=== PATIENT | male | born 1935 | race Caucasian/White ===

== ENCOUNTER 2019-04-26 10:17 | Emergency (ER) | payer MEDICARE, SELFPAY ==
[2019-04-26 10:23] VITALS: BP 153/69; PULSE 53; RESP 15; TEMP 36.7; O2SAT 97
--- NOTE | 2019-04-26 11:18 | W.ED.GENAD ---
Discharge Plan Disposition Patient Disposition: HOME Condition: Stable Discharge Details Chief Complaint: Cellulitis Clinical Impression: Abrasion of leg, right, infected Primary Care Provider: Ghassan Pearson ED Provider: Galo Cheney Home Meds and New Rx's Prescriptions: New cephalexin 500 mg tablet 500 mg PO QID 7 Days Qty: 28 RF: 0 Continued donepezil 10 MG tablet 10 mg PO HS RF: 0 tamsulosin 0.4 MG capsule 0.4 mg PO DAILY RF: 0 amlodipine 10 MG tablet 10 mg PO DAILY RF: 0 benazepril 40 MG tablet 40 mg PO BID RF: 0 finasteride 5 MG tablet 5 mg PO HS RF: 0 memantine [Namenda] 5 MG tablet 10 mg PO BID RF: 0 sertraline 25 MG tablet 25 mg PO DAILY RF: 0 Discharge Instructions Instructions: Cellulitis (ED) Additional Instructions: Continue to keep wound clean and dry and take antibiotics as prescribed and until fully completed. Return immediately to the emergency department for any new or significant worsening of symptoms or if not improving in the next 24 to 48 hours. Feel free to follow-up with primary care provider for reassessment as needed. Referrals: Ghassan Pearson [Primary Care Provider] - (As needed for reassessment or if not improving) Discharge Data Discharge Date/Time-TO BE ENTERED AT DEPARTURE: 04/26/19 11:37 Medical Decision Making Patient presenting to the emergency department with chief complaint of leg infection. Patient states approximately 1 week ago he had a slight abrasion to his right lower leg which seemed to be healing fine over the past 24 to 48 hours as noted significant swelling, erythema, and increase of discomfort to this area. Patient denies any fever chills, calf pain, or other symptoms. Physical exam shows a superficial abrasion to the right anterior dumont with surrounding erythema and swelling to the right lower extremity that is slightly worse than the left but both lower extremity's have edema. Patient does state ongoing edema to the lower extreme is but has noticed worsening symptoms given recent injury with surrounding erythema suspicious for cellulitis patient placed on Keflex. Return precautions were discussed. After discussion of diagnosis and plan of care patient has no further needs, questions, or concerns and states clear understanding to return to the emergency department for any worsening symptoms. HPI General Mode of arrival: ambulatory. Date/Time Provider Initiated Documentation: 04/26/19 10:27. Limitations to Documentation: no limitations. Information obtained by: patient and RN notes reviewed. History of Present Illness 84 year old M presents to the emergency department with the chief complaint of Right lower leg infection, described as mild, with intensity rated at 4. Quality is described as aching, and is localized to the right and lower extremity. Patient started experiencing this day(s) (6, with worsening over the past 24 hours) and it has been constant. Patient notes no other symptoms.. Patient did receive the following treatments prior to arrival, none Related Data Home Medications Medication Instructions Recorded Confirmed amlodipine 10 mg PO DAILY 06/18/16 04/26/19 benazepril 40 mg PO BID 06/18/16 04/26/19 donepezil 10 mg PO HS 06/18/16 04/26/19 finasteride 5 mg PO HS 06/18/16 04/26/19 memantine [Namenda] 10 mg PO BID 06/18/16 04/26/19 tamsulosin 0.4 mg PO DAILY 06/18/16 04/26/19 sertraline 25 mg PO DAILY 02/15/17 04/26/19 cephalexin 500 mg PO QID 7 Days #28 tab 04/26/19 Previous Rx's Medication Instructions Recorded cephalexin 500 mg PO QID 7 Days #28 tab 04/26/19 Allergies Allergy/AdvReac Type Severity Reaction Status Date / Time No Known Allergies Allergy Unverified 04/26/19 10:35 General Stated Complaint: Cellulitis DAYSI: 4 Review of Systems Constitutional Denies chills and Denies fever(s) Cardiovascular Denies chest pain, Reports leg edema and Denies dyspnea Respiratory Denies dyspnea Integumentary/Breasts Reports as per HPI, Reports erythema and Reports sores [facility] Social History Smoking/Tobacco Use Status: Former Tobacco Use Drug use: Never Do you feel safe at home: Yes Do you feel safe in your relationship?: Yes Exam Const General: cooperative, healthy appearing, comfortable, no acute distress and not ill appearing Nutritional Appearance: average body habitus Orientation: alert and awake Cardio Rate: regular rate Rhythm: regular rhythm Skin General skin exam: erythema (With abrasion to right anterior dumont) Extrem General: pedal edema bilaterally (1+ left, 2+ right) Course Vital Signs Temperature 36.7 C 04/26/19 10:23 Pulse 53 L 04/26/19 10:23 Respiratory Rate 15 04/26/19 10:23 Blood Pressure 153/69 H 04/26/19 10:23 Pulse Oximetry 97 04/26/19 10:23 Temperature 36.7 C 04/26/19 10:23 Temperature Source Temporal Artery Scan 04/26/19 10:23 Pulse 53 L 04/26/19 10:23 Respiratory Rate 15 04/26/19 10:23 Respiratory Effort Non-Labored 04/26/19 10:34 Blood Pressure 153/69 H 04/26/19 10:23 Blood Pressure Position Sitting 04/26/19 10:23 Pulse Oximetry 97 04/26/19 10:23 Oxygen Delivery Method Room Air 04/26/19 10:23 Oxygen Flow Rate 0 04/26/19 10:23 Pain Level 4 04/26/19 10:23
[2019-04-26] MEDS: Cephalexin 500 MG CAP PO (11:33)
[2019-04-26 11:35] VITALS: BP 153/69; PULSE 53; RESP 15; TEMP 36.7; O2SAT 97
== END 2019-04-26 11:37 | disposition home or self-care (01) ==
LOC: ER 11:32
PROVIDERS: Emergency Provider Nurse Practitioner Family; PCP Internal Medicine
DX: L03.115 Cellulitis of right lower limb (principal)
CPT/HCPCS: 99283

== ENCOUNTER 2019-05-02 11:51 | Emergency (ER) | payer MEDICARE, SELFPAY ==
[2019-05-02 11:56] VITALS: BP 129/71; PULSE 52; RESP 16; TEMP 36.6; O2SAT 97
--- NOTE | 2019-05-02 12:13 | ED.GENADUL_ITS ---
Discharge Plan Disposition Patient Disposition: HOME Condition: Stable Discharge Details Chief Complaint: GenMedical Clinical Impression: Cellulitis Primary Care Provider: Ghassan Pearson ED Provider: Galo Cheney Home Meds and New Rx's Prescriptions: New doxycycline hyclate 100 mg tablet 100 mg PO BID Qty: 14 RF: 0 Continued donepezil 10 MG tablet 10 mg PO HS RF: 0 tamsulosin 0.4 MG capsule 0.4 mg PO DAILY RF: 0 amlodipine 10 MG tablet 10 mg PO DAILY RF: 0 benazepril 40 MG tablet 40 mg PO BID RF: 0 finasteride 5 MG tablet 5 mg PO HS RF: 0 memantine [Namenda] 5 MG tablet 10 mg PO BID RF: 0 sertraline 25 MG tablet 25 mg PO DAILY RF: 0 Discontinued cephalexin 500 mg tablet 500 mg PO QID 7 Days Qty: 28 RF: 0 Discharge Instructions Instructions: Cellulitis (ED) Additional Instructions: You may stop your Keflex and start doxycycline right away. Take for the full course of medications. Please be very cautious if out in the sun as this medication may cause photosensitivity and sunburns. Return immediately to the emergency department for any new or significant worsening of symptoms or if not improved. Referrals: Ghassan Pearson [Primary Care Provider] - (As needed for reassessment or if not improving) Discharge Data Discharge Date/Time-TO BE ENTERED AT DEPARTURE: 05/02/19 14:08 Medical Decision Making Patient presenting to the emergency department for chief complaint of continued left leg infection. Patient was seen by myself 6 days ago and was placed upon Keflex for a superficial mild cellulitis to the left anterior dumont after a abrasion. Patient states that wound is just not improving and he has 1 day left of medications. Physical exam does show unilateral edema, erythema, but wound/abrasion does appear to be closing up and healing better but erythema does seem to be more distal to wound. Given unilateral leg swelling and continued symptoms do plan to rule out DVT or superficial thrombophlebitis causing this. DVT study was reviewed and discussed with lead maintenance technician and no acute findings are noted except for obvious edema. Given that patient has been on Keflex and is not improved plan to place patient on doxycycline. Did discuss with patient precautions and sun exposure while on medication. Return precautions discussed. After discussion of diagnosis and plan of care patient has no further needs, questions, or concerns and states clear understanding to return to the emergency department for any worsening symptoms. HPI General Mode of arrival: ambulatory . Date/Time Provider Initiated Documentation: 05/02/19 12:02 . Limitations to Documentation: no limitations . Information obtained by: patient, family and RN notes reviewed . History of Present Illness 84 year old M presents to the emergency department with the chief complaint of right lower extremity wound discomfort, described as mild, with intensity rated at 4. Quality is described as aching, and is localized to the right and lower extremity. Related Data Home Medications Medication Instructions Recorded Confirmed amlodipine 10 mg PO DAILY 06/18/16 05/02/19 benazepril 40 mg PO BID 06/18/16 05/02/19 donepezil 10 mg PO HS 06/18/16 05/02/19 finasteride 5 mg PO HS 06/18/16 04/26/19 memantine [Namenda] 10 mg PO BID 06/18/16 04/26/19 tamsulosin 0.4 mg PO DAILY 06/18/16 05/02/19 sertraline 25 mg PO DAILY 02/15/17 05/02/19 doxycycline hyclate 100 mg PO BID #14 tab 05/02/19 Previous Rx's Medication Instructions Recorded doxycycline hyclate 100 mg PO BID #14 tab 05/02/19 Allergies Allergy/AdvReac Type Severity Reaction Status Date / Time No Known Allergies Allergy Unverified 04/26/19 10:35 General Stated Complaint: GenMedical DAYSI: 4 Review of Systems Constitutional Denies body ache(s), Denies chills and Denies fever(s) Cardiovascular Denies chest pain, Reports edema (left lower leg) and Denies dyspnea Respiratory Denies cough and Denies dyspnea Integumentary/Breasts Reports as per HPI and Reports wounds PFSH Social History Smoking/Tobacco Use Status: Former Tobacco Use Drug use: Never Do you feel safe at home: Yes Do you feel safe in your relationship?: Yes Exam Const General: cooperative, healthy appearing, comfortable and no acute distress Orientation: alert, awake and oriented x3 Resp Effort & Inspection: normal respiratory effort and able to speak in complete sentences Auscultation: clear to auscultation bilaterally Cardio Rate: regular rate Rhythm: regular rhythm Heart Sounds: S1 normal and S2 normal Pulses: normal peripheral pulses Neuro General: alert, awake, oriented x3, moves all extremities and no focal motor deficits Extrem Right lower extremity: lower leg Details: erythema Location: of the mid lower leg Location: anteriorly, tenderness Location: of the midshaft tibia, pitting edema Details: 1+ and abrasion mid lower leg anterior Details: multiple Course Vital Signs Temperature 36.6 C 05/02/19 11:56 Pulse 52 L 05/02/19 11:56 Respiratory Rate 16 05/02/19 11:56 Blood Pressure 129/71 05/02/19 11:56 Pulse Oximetry 97 05/02/19 11:56 Temperature 36.6 C 05/02/19 11:56 Temperature Source Skin 05/02/19 11:56 Pulse 52 L 05/02/19 11:56 Respiratory Rate 16 05/02/19 11:56 Respiratory Effort Non-Labored 05/02/19 12:00 Blood Pressure 129/71 05/02/19 11:56 Blood Pressure Position Sitting 05/02/19 11:56 Pulse Oximetry 97 05/02/19 11:56 Oxygen Delivery Method Room Air 05/02/19 11:56 Oxygen Flow Rate 0 05/02/19 11:56 Pain Level 4 05/02/19 11:56
--- NOTE | 2019-05-02 13:15 | DI.US_ITS ---
SYMPTOMS/DIAGNOSIS: LEG SWELLING, ANTERIOR SIMMS PAIN DUPLEX VENOUS ULTRASOUND RIGHT LOWER EXTREMITY: Duplex evaluation of the deep venous system was performed according to the usual protocol. The deep veins are freely compressible throughout to the level of the popliteal veins. There is normal doppler flow visible throughout and there is excellent flow augmentation with manual calf compression. CONCLUSION: No evidence of deep venous thrombosis.
[2019-05-02] MEDS: Doxycycline Hyclate 100 MG CAP PO (14:08)
== END 2019-05-02 14:08 | disposition home or self-care (01) ==
PROVIDERS: Emergency Provider Nurse Practitioner Family; PCP Internal Medicine
DX: L03.115 Cellulitis of right lower limb (principal)
CPT/HCPCS: 99284; 93971

== ENCOUNTER 2021-04-03 22:53 | Emergency (ER) | payer MEDICARE, SELFPAY ==
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
[2021-04-03 23:11] VITALS: BP 140/92; PULSE 63; RESP 18; TEMP 36.2; O2SAT 95
== END 2021-04-04 02:10 | disposition home or self-care (01) ==
PROVIDERS: Emergency Provider Emergency Medicine; PCP Internal Medicine
DX: Z04.1 Encounter for examination and observation following transport accident (principal); Z71.1 Person with feared health complaint in whom no diagnosis is made
CPT/HCPCS: 99283

== ENCOUNTER 2023-04-24 10:38 | Emergency (ER) | payer MEDICARE, SELFPAY ==
[2023-04-24 10:43] VITALS: BP 134/83; PULSE 79; RESP 18; TEMP 36.1; O2SAT 98
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
[2023-04-24 11:39] LABS: Absolute Eosinophil Count 0.24 10^3/uL (0.0-0.7); Absolute Lymphocyte Count 0.45 10^3/uL (1.2-3.4); Absolute Neutrophil Count 13.67 10^3/uL (1.2-6.7); Basophils % 0.3; Eosinophils % 1.5; HCT 41.5 % (40.0-50.0); HGB 13.6 g/dL (13.5-17.5); Immature Grans % 0.6; Lymphocytes % 2.8; MCH 31.1 pg (27.0-33.0); MCHC 32.8 % (32.0-36.0); MCV 95 fL (80-95); MPV 9.4 fL (8.0-11.0); Monocytes % 8.8; Platelet Count 333 10^3/uL (130-400); RBC 4.38 10^6/uL (4.36-5.78); RDW-SD 45.6 fL
[2023-04-24 11:40] VITALS: RESP 15
[2023-04-24] MEDS: Normal Saline 1,000 ML 1000 ML IV (11:49)
[2023-04-24 11:51] LABS: Absolute Basophil Count 0.05 10^3/uL (0.0-0.2)
[2023-04-24 11:53] LABS: PTT Activated 24.5 sec (21.5-31.9); Prothrombin Time 10.3 sec (9.3-11.0)
[2023-04-24 12:02] LABS: ALT 21 U/L (16-63); AST 20 U/L (15-37); Albumin 3.6 g/dL (3.4-5.0); Alkaline Phosphatase 82 U/L (46-116); BUN 35 mg/dL (7-18); Bilirubin, Total 0.5 mg/dL (0.2-1.0); CREATININE 1.2 mg/dL (0.70-1.30); Calcium 9.3 mg/dL (8.5-10.1); Chloride 103 mmol/L (98-107); Estimated GFR 58.53 (mL/min/1.73m2); Glucose 154 mg/dL (74-106); Potassium 4.1 mmol/L (3.5-5.1); Sodium 139 mmol/L (136-145); TSH (W/Ref FT4) 2.21 uIU/mL (0.36-3.74); Total Protein 8.3 g/dL (6.4-8.2)
[2023-04-24 12:43] LABS: Bilirubin Negative (Negative); Blood Large (Negative); Clarity Turbid (Clear); Glucose Negative (Negative); Ketones Negative (Negative); Leukocyte Esterase Small (Negative); Nitrite Negative (Negative); Specific Gravity 1.025 (1.005-1.025); Urobilinogen 0.2 mg/dL (Up to 0.2); pH 6.5 (5-8)
[2023-04-24 12:56] LABS: C & S Indicated? Yes; RBC >50 HPF (0-2)
[2023-04-24] MEDS: levoFLOXacin 500 MG, levoFLOXacin 250 MG 750 MG PO (13:09)
[2023-04-24 14:15] VITALS: BP 141/75; PULSE 63; RESP 18; O2SAT 93
--- NOTE | 2023-04-26 08:03 | NUR.NOTE ---
Nursing Note:in chart for antibiotics
== END 2023-04-24 14:09 | disposition home or self-care (01) ==
PROVIDERS: Emergency Provider Emergency Medicine; PCP Internal Medicine
DX: R41.0 Disorientation, unspecified (principal); N39.0 Urinary tract infection, site not specified; I10 Essential (primary) hypertension; G30.9 Alzheimer's disease, unspecified; F02.80 Dementia in other diseases classified elsewhere, unspecified severity, without behavioral disturbance, psychotic disturbance, mood disturbance, and anxiety; Z79.82 Long term (current) use of aspirin
CPT/HCPCS: 80053; 87077; 81003; 81015; 83735; 84443; 85025; 85610; 85730; 87086; 87186

== ENCOUNTER 2023-04-25 15:47 | Emergency (ER) | payer MEDICARE, SELFPAY ==
[2023-04-25] VITALS (173 sets, daily range): BP systolic 80–141; BP diastolic 44–79; PULSE 42–72; RESP 11–22; TEMP 36.8; O2SAT 92–96
--- NOTE | 2023-04-25 15:45 | RT.EKG_ITS ---
APPROVED REPORT Exam: Resting ECG Reason for Exam: lightheaded Patient Location: E HR:58 bpm ECG Measurements Heart Rate 58 AXIS MA [id number] P [id number] QRSd 80 QRS 67 QT 502 T 48 QTc 495 Conclusion Atrial fibrillation...? atrial activity Ventricular premature complex...V complex w/ short R-R interval Physician: brenda stemi
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
[2023-04-25] MEDS: Normal Saline 500 ML IV ×2 (16:25→17:59)
[2023-04-25 16:39] LABS: ALT 19 U/L (16-63); AST 25 U/L (15-37); Alkaline Phosphatase 62 U/L (46-116); Anion Gap 6.7 mmol/L (3-11); BUN 34 mg/dL (7-18); Bilirubin, Total 0.5 mg/dL (0.2-1.0); CO2 28.3 mmol/L (21.0-32.0); CREATININE 1.4 mg/dL (0.70-1.30); Calcium 8.8 mg/dL (8.5-10.1); Chloride 104 mmol/L (98-107); Estimated GFR 48.65 (mL/min/1.73m2); Glucose 109 mg/dL (74-106); Potassium 4.1 mmol/L (3.5-5.1); Sodium 139 mmol/L (136-145)
--- NOTE | 2023-04-25 16:54 | NUR.NOTE ---
Nursing Note: LAB to re-collect blood sample; pt has been attempted draw by ER staff x3 total when placing IV.
[2023-04-25 17:18] LABS: Abs Immature Grans 0.04 10^3/uL (0.0-0.06); Absolute Basophil Count 0.03 10^3/uL (0.0-0.2); Absolute Eosinophil Count 0.04 10^3/uL (0.0-0.7); Absolute Lymphocyte Count 0.76 10^3/uL (1.2-3.4); Absolute Monocyte Count 0.89 10^3/uL (0.1-0.8); Absolute Neutrophil Count 7.08 10^3/uL (1.2-6.7); Basophils % 0.3; Eosinophils % 0.5; HCT 33.1 % (40.0-50.0); HGB 10.9 g/dL (13.5-17.5); Immature Grans % 0.5; Lymphocytes % 8.6; MCH 31.4 pg (27.0-33.0); MCHC 32.9 % (32.0-36.0); MCV 95 fL (80-95); MPV 9.7 fL (8.0-11.0); Monocytes % 10.1; Platelet Count 241 10^3/uL (130-400); RBC 3.47 10^6/uL (4.36-5.78); RDW 13.2 % (11.8-14.1); RDW-SD 46.3 fL; WBC 8.84 10^3/uL (4.4-10.8)
--- NOTE | 2023-04-25 21:28 | NUR.NOTE ---
-Nursing Note: Report called to Maddie WOODARD at [facility]- at [phone]
== END 2023-04-25 19:01 | disposition home or self-care (01) ==
PROVIDERS: Emergency Provider Student in an Organized Health Care Education/Training Program; PCP Internal Medicine
DX: I48.91 Unspecified atrial fibrillation (principal); E86.0 Dehydration; R42 Dizziness and giddiness; I25.10 Atherosclerotic heart disease of native coronary artery without angina pectoris; E78.5 Hyperlipidemia, unspecified; G30.9 Alzheimer's disease, unspecified; F02.80 Dementia in other diseases classified elsewhere, unspecified severity, without behavioral disturbance, psychotic disturbance, mood disturbance, and anxiety; Z79.82 Long term (current) use of aspirin; Z87.891 Personal history of nicotine dependence; Z93.3 Colostomy status
CPT/HCPCS: 80053; 93005; 96360; 99283; 85025; 93010

== ENCOUNTER 2023-05-12 06:56 | Emergency (ER) | payer MEDICARE, SELFPAY ==
--- NOTE | 2023-05-12 06:45 | RT.EKG_ITS ---
APPROVED REPORT Exam: Resting ECG Reason for Exam: unresponsive Patient Location: E HR:63 bpm ECG Measurements Heart Rate 63 AXIS UT 266 P 0 QRSd 72 QRS 55 QT 406 T 52 QTc 418 Conclusion Second degree AV block, Mobitz II...multiple P waves
[2023-05-12 06:56] VITALS: BP 141/64; PULSE 64; RESP 24; O2SAT 92
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
[2023-05-12] MEDS: Normal Saline 1,000 ML 1000 ML IV (07:12)
[2023-05-12 07:26] LABS: Abs Immature Grans 0.06 10^3/uL (0.0-0.06); Absolute Basophil Count 0.07 10^3/uL (0.0-0.2); Absolute Eosinophil Count 0.04 10^3/uL (0.0-0.7); Absolute Lymphocyte Count 0.81 10^3/uL (1.2-3.4); Absolute Monocyte Count 1.17 10^3/uL (0.1-0.8); Absolute Neutrophil Count 10.05 10^3/uL (1.2-6.7); Basophils % 0.6; Eosinophils % 0.3; HCT 38.4 % (40.0-50.0); HGB 12.4 g/dL (13.5-17.5); Immature Grans % 0.5; Lymphocytes % 6.6; MCHC 32.3 % (32.0-36.0); MCV 96 fL (80-95); MPV 9.2 fL (8.0-11.0); Monocytes % 9.6; Neutrophils % 82.4; Platelet Count 317 10^3/uL (130-400); RDW 13.2 % (11.8-14.1); RDW-SD 47.3 fL
[2023-05-12 07:42] LABS: PTT Activated 24.1 sec (21.5-31.9); Prothrombin Time 10.1 sec (9.3-11.0)
[2023-05-12 07:51] LABS: ALT 13 U/L (16-63); AST 9 U/L (15-37); Albumin 3.1 g/dL (3.4-5.0); Alkaline Phosphatase 74 U/L (46-116); Anion Gap 7.4 mmol/L (3-11); BUN 21 mg/dL (7-18); CO2 29.6 mmol/L (21.0-32.0); CREATININE 0.9 mg/dL (0.70-1.30); Calcium 9.5 mg/dL (8.5-10.1); Chloride 106 mmol/L (98-107); ETHANOL BLOOD < 3.0 mg/dL (<10); Estimated GFR 82.66 (mL/min/1.73m2); Glucose 125 mg/dL (74-106); Magnesium 2.1 mg/dL (1.8-2.4); NT-proBNP 1970 pg/mL (<300); Potassium 4.2 mmol/L (3.5-5.1); Sodium 143 mmol/L (136-145); Total Protein 7.7 g/dL (6.4-8.2); Troponin I < 50 ng/L (<or=60)
--- NOTE | 2023-05-12 08:42 | DI.CT_ITS ---
Exam(s) CT HEAD WO EXAM: CT HEAD WO CLINICAL HISTORY: episode of unresponsivness. TECHNIQUE: Imaging Protocol: Axial computed tomography images with coronal and sagittal reformatted images were created and reviewed COMPARISON: No exams were available for comparison FINDINGS: There are no skull fractures. There is no fluid in the visualized paranasal sinuses. There is no evidence of intracranial hemorrhage, mass effect, or shift of midline structures. There are no extra-axial fluid collections. There is symmetrical atrophy. There is also abundant bilatera l periventricular hypodensity consistent with chronic small vessel disease. No obvious acute territo rial infarct. IMPRESSION: Abundant bilateral periventricular hypodensity consistent chronic small vessel disease. No obvious a symmetric acute infarct nor intracranial hemorrhage. If clinically indicated follow-up MRI can be pe rformed. RADIATION DOSE DELIVERED: 813.18mGy.cm Total DLP DATA REPOSITORY: All CT scans at this facility are submitted to the National Radiology Data Registry (NRDR) Dose Index Registry (DIR) with the [employer] (A[employer]). RADIATION OPTIMIZATION: All CT scans at this facility use at least one of these dose optimization te chniques: automated exposure control; mA and/or kV adjustment per patient size (includes targeted exa ms where dose is matched to clinical indication); or iterative reconstruction.
--- NOTE | 2023-05-12 08:45 | DI.RAD_ITS ---
Exam(s) XR PORTABLE CHEST AP EXAM: XR PORTABLE CHEST AP CLINICAL HISTORY: unresponsive. TECHNIQUE: 2D digital imaging was performed. COMPARISON: No exams were available for comparison FINDINGS: Single AP portable view. Heart size is upper normal. The mediastinum is not widened. Lungs are clear. No infiltrates nor obvious pleural effusions. IMPRESSION: No acute pulmonary findings on this single AP portable view of the chest. DATA REPOSITORY: RADIATION DOSE DELIVERED:
[2023-05-12 08:49] VITALS: RESP 16
--- NOTE | 2023-05-12 09:26 | ED.PROG_ITS ---
Date of service: 05/12/23 Time of Service: 09:26 Medical Decision Making Patient feeling much better after fluid boluses. Alert interactive ambulatory. Patient's is coordinating with palliative care and primary care for likely weekly infusions to keep up with his fluid intake. Patient family feel comfor table going home. Given home care instructions and return precautions Sign Out Sign Out Data: Sign Out Comment: 88yo M with dementia, short gut, presenting after unresponsive this morning. started CPR. Alert on EMS arrival, normal vital signs. History of similar presentations when dehydrated; dry mucous membranes and skin tenting on exam currently. Getting fluid bolus. Pending workup including labs, CXR, urine, head CT Last updated by Michaela Estes MD at 05/12/23 07:21 Discharge Plan Disposition Patient Disposition: Home Discharge Details Chief Complaint: AMS/LOC Clinical Impression: Acute dehydration Primary Care Provider: Ghassan Pearson ED Provider: Ric Camacho Home Meds and New Rx's Prescriptions: No Action naltrexone 50 mg tablet 25 mg PO DAILY Fish Oil 120-180-500 mg capsule PO magnesium carb,citrate,oxide 300 mg magnesium tablet PO DAILY Patient Comments: Pt comments unknown dose. memantine [Namenda] 10 mg tablet 10 mg PO BID chondroitin sulfate-turmeric 600-125 mg tablet 1 tab PO DAILY ascorbic acid (vitamin C) 500 mg capsule 500 mg PO DAILY zinc gluconate 50 mg tablet 50 mg PO DAILY aspirin 81 mg tablet,delayed release (DR/EC) 81 mg PO DAILY silver nitrate applicators 75-25 % stick 1 applic topical ONCE donepezil 10 MG tablet 10 mg PO HS tamsulosin 0.4 MG capsule 0.4 mg PO DAILY amlodipine 10 MG tablet 10 mg PO DAILY benazepril 40 MG tablet 40 mg PO BID finasteride 5 MG tablet 5 mg PO HS sertraline 25 MG tablet 50 mg PO DAILY levofloxacin 750 mg tablet 750 mg PO DAILY Qty: 5 0RF Discharge Instructions Instructions: Dehydration (ED)
== END 2023-05-12 09:46 | disposition home or self-care (01) ==
PROVIDERS: Student in an Organized Health Care Education/Training Program; Emergency Provider Emergency Medicine; PCP Internal Medicine
DX: E86.0 Dehydration (principal); R41.82 Altered mental status, unspecified; F03.90 Unspecified dementia, unspecified severity, without behavioral disturbance, psychotic disturbance, mood disturbance, and anxiety
CPT/HCPCS: 36415; 80053; 93005; 96360; 99285; 70450; 71045; 80320; 83735; 83880; 84484; 85025; 85610; 85730; 93010; 99284

== ENCOUNTER 2023-05-14 00:44 | Inpatient (IN) | payer MEDICARE, SELFPAY ==
[2023-05-14] VITALS (141 sets, daily range): BP systolic 82–139; BP diastolic 40–82; PULSE 32–91; RESP 11–33; TEMP 34.7–39.8; O2SAT 88–100
--- NOTE | 2023-05-14 00:45 | DI.RAD_ITS ---
Exam(s) XR CHEST 2V PA LATERAL EXAM: XR CHEST 2V PA LATERAL CLINICAL HISTORY: fever. TECHNIQUE: 2D digital imaging was performed. COMPARISON: CR XR PORTABLE CHEST AP from 05/12/2023 FINDINGS: 2 views: Right lung is clear. There is now platelike atelectasis versus early developing infiltrate in the la teral left lung base. No pleural effusions. No pulmonary edema. Lungs are clear. No infiltrates nor pleural effusions. IMPRESSION: Platelike atelectasis versus early developing infiltrate in the lateral left lung base. No pleural e ffusions. DATA REPOSITORY: RADIATION DOSE DELIVERED:
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
[2023-05-14 01:02] LABS: Abs Immature Grans 0.05 10^3/uL (0.0-0.06); Absolute Basophil Count 0.03 10^3/uL (0.0-0.2); Absolute Lymphocyte Count 0.16 10^3/uL (1.2-3.4); Absolute Monocyte Count 0.43 10^3/uL (0.1-0.8); Absolute Neutrophil Count 7.86 10^3/uL (1.2-6.7); Basophils % 0.4; HCT 32.4 % (40.0-50.0); HGB 10.6 g/dL (13.5-17.5); Immature Grans % 0.6; Lymphocytes % 1.9; MCH 31.5 pg (27.0-33.0); MCHC 32.7 % (32.0-36.0); MCV 96 fL (80-95); MPV 9.5 fL (8.0-11.0); Neutrophils % 92.1; Platelet Count 225 10^3/uL (130-400); RBC 3.37 10^6/uL (4.36-5.78); RDW 13.2 % (11.8-14.1); RDW-SD 47.2 fL; WBC 8.53 10^3/uL (4.4-10.8)
[2023-05-14] MEDS: ACETAMINOPHEN 1,000 MG/100 ML BTL 400 MG IVPB (01:07)
[2023-05-14 01:08] LABS: Lactate 2.8 mmol/L (0.6-1.4)
[2023-05-14] MEDS: Normal Saline 1,000 ML 1000 ML IV (01:09)
[2023-05-14] MEDS: cefTRIAXone 2 GM/50 ML BAG IVPB (01:09)
[2023-05-14 01:29] LABS: ALT 18 U/L (16-63); AST 21 U/L (15-37); Albumin 2.6 g/dL (3.4-5.0); Alkaline Phosphatase 81 U/L (46-116); Anion Gap 8.7 mmol/L (3-11); BUN 36 mg/dL (7-18); Bilirubin, Total 0.4 mg/dL (0.2-1.0); CO2 26.3 mmol/L (21.0-32.0); CREATININE 1.2 mg/dL (0.70-1.30); Chloride 105 mmol/L (98-107); Estimated GFR 58.53 (mL/min/1.73m2); Glucose 155 mg/dL (74-106); INR 1.1 (0.9-1.1); Magnesium 1.7 mg/dL (1.8-2.4); PTT Activated 23.7 sec (21.5-31.9); Potassium 3.7 mmol/L (3.5-5.1); Prothrombin Time 10.9 sec (9.3-11.0); Sodium 140 mmol/L (136-145); TSH (W/Ref FT4) 1.63 uIU/mL (0.36-3.74); Total Protein 6.8 g/dL (6.4-8.2)
[2023-05-14 01:37] LABS: Procalcitonin 3.1 ng/mL
[2023-05-14 01:40] LABS: COVID-19 PCR Negative (Negative); Influenza A PCR Negative (Negative); Influenza B PCR Negative (Negative); RSV PCR Negative (Negative)
--- NOTE | 2023-05-14 01:41 | DI.VRAD_ITS ---
PROCEDURE INFORMATION: Exam: XR Chest Exam date and time: 05/14/2023 1:31 AM Age: 88 years old Clinical indication: Fever TECHNIQUE: Imaging protocol: Radiologic exam of the chest. Views: 2 views. COMPARISON: CR XR PORTABLE CHEST AP 05/12/2023 8:43 AM FINDINGS: Lungs: Interval development of a mild focal infiltrate versus atelectasis in the left lung base. Stable mild atelectasis in the right lung base. Lungs are otherwise clear. Pleural spaces: Unremarkable. No pleural effusion. No pneumothorax. Heart/Mediastinum: Unremarkable. No cardiomegaly. Bones/joints: Moderate degenerative changes in the thoracic spine and shoulders. IMPRESSION: Interval development of mild left basilar infiltrate versus atelectasis Dictated and Authenticated by: Samson Ballard MD. Ordering:NAT Tineo MD
[2023-05-14] MEDS: MAGNESIUM SULFATE 2 GM/50 ML BAG IVPB (01:45)
[2023-05-14 01:56] LABS: Source Nasopharynx
[2023-05-14 02:00] LABS: Bilirubin Negative (Negative); Blood Small (Negative); Clarity Sl Cloudy (Clear); Glucose Negative (Negative); Ketones Negative (Negative); Leukocyte Esterase Small (Negative); Nitrite Positive (Negative); Specific Gravity 1.025 (1.005-1.025); Urobilinogen 0.2 mg/dL (Up to 0.2); pH 6.5 (5-8)
[2023-05-14 02:02] LABS: Bacteria Few HPF (Negative); Epithelial Cells Few HPF (Negative)
[2023-05-14 02:03] LABS: C & S Indicated? Yes; Casts Negative LPF (Negative); Crystals Negative HPF (Negative); Mucus Negative (Negative)
[2023-05-14] MEDS: AZITHROMYCIN 500 MG in Normal Saline 250 ML 250 MG IVPB (02:17)
[2023-05-14] MEDS: Normal Saline 500 ML IV ×2 (03:11→09:56)
[2023-05-14] MEDS: Normal Saline Flush 10 ML SYR IVP ×4 (03:47→17:39)
[2023-05-14] MEDS: Normal Saline 1,000 ML 125 ML IV ×2 (04:43→07:45)
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
[2023-05-14 05:52] LABS: Lactate 0.7 mmol/L (0.6-1.4)
[2023-05-14] MEDS: Heparin 5,000 UNITS/ML VIAL 5000 UNITS SC ×3 (06:04→21:26)
[2023-05-14] MEDS: Hydrocortisone SOD SUC. 100 MG VIAL IVP (06:04)
--- NOTE | 2023-05-14 09:15 | RT.EKG_ITS ---
APPROVED REPORT Exam: Resting ECG Reason for Exam: bradycardia Patient Location: I HR:43 bpm ECG Measurements Heart Rate 43 AXIS NM 296 P 0 QRSd 58 QRS 53 QT 516 T 28 QTc 437 Conclusion Sinus bradycardia...rate< 50 Prolonged NM interval...NM >230, V-rate 30- 49
--- NOTE | 2023-05-14 10:09 | PGE_ITS ---
Date of Service Date of service: 05/14/23 Time of Service: 10:09 Assessment and Plan Assessment and plan (1) Sepsis: Status: Acute Assessment and plan: patient presentes w/ criteria for sepsis (hypotension, low U.O., acute congnitive changes, in setting of UTI and/or pneumonia), patient initially was resuscitated w/ iv fluids and begun on Ceftriaxone and azithromycin and his perdomo catheter was changed. However he has become bradycardic and hypotensive necessitating initiaion of norepinephrine and transfer to ICU. Family is holding furhter discusssions regarding his CODE STATUS. (2) Bradycardia: Status: Acute Assessment and plan: He does not appear to be in advanced heart block and troponin from last night was normal. I will repeat his troponin and I will check POCUS exam to assess his volume status and begin N.E., consider broadening his ceftriaxone to Meropenem, add Vancomycin for coverage of Enterococcus pending urine and blood cultures results. (3) Acute UTI: Status: Acute Assessment and plan: as above. also needs imaging of his kidneys (4) Infiltrate of lower lobe of left lung present on imaging study: Status: Acute Assessment and plan: probably atelectasis but can not exclude pneumonia but I do not feel that this is the cause for his sepsis and hemodynamic derangements (5) Atelectasis, left: Status: Acute Assessment and plan: acapella and IS as tolerated, encourage upright as much as possible; use nebulizers prn but not actively wheezing now (6) Alzheimer's dementia: Status: Acute Assessment and plan: continue home meds (Namenda and Aricept) (7) Acute dehydration: Status: Acute Assessment and plan: assess volume status and resuscitate w/ LR (8) Urinary retention: Status: Acute Assessment and plan: perdomo changed and is funcitoning (9) HTN (hypertension): Status: Chronic Assessment and plan: benazapril was reordered by admitting hospitalist but I have put the med on hold and fortunately nursing did not give his a.m. dose so this has not contributed to his hypotension (10) DVT prophylaxis: Status: Acute Assessment and plan: heparin SC (11) Discharge planning issues: Status: Acute Assessment and plan: patient to return home w/ home health when medically stable; is in discussion w/ the daughter regarding changing his code status to DNR/DNI Subjective Subjective Interval history since last seen: Patient was admitted last night d/t acute encephalopathy in setting of UTI and pneumonia in background of dementia and indwelling perdomo. CXR demonstrated left basilar infiltrate vs atelectasis, urine and blood cultures were sent and he was started on azithromycin and Rocephin. He had hypotension during the night and initially responded to iv fluids. However he has had 2 1/2 liters and despite that he has become hypotensive and bradycardic this morning. Rhythm is sinus bailey in the high 30's to low 40's w/ 1st degree AV block. EKG did not show any ischemic changes. Reveiw of his meds does not reveal any AV rosalinda blocking meds. I had a discussion w/ his who is present and also w/ his daughter, per phone, who is in [place] and works for [employer] and has some medical education. I have explained to them that he is septic probably from the UTI and not from pneumonia and that he needs to be on norepinephrine to stabilize his BP and will need to transfer to ICU. I also discussed code status, DNR/DNI orders. His daughter is inclined to encourage her mother not to pursue full cardiopulmonary resuscitation in the event of cardiopulmonary arrest. However, at this point he remains a full CODE. Exam Narrative Exam Narrative: Elderly white male who is somnolent but arousable to tactile stimulation. He is oriented only to his name. Neck veins are flat Lungs with diminished breath sounds at the bases no rhonchi wheezes or rales Heart is regular but bradycardic no appreciable murmur rub Abdomen soft nondistended normal bowel sounds Extremities without edema or cyanosis Objective Last Vital Signs Temp 34.7 C L 05/14/23 07:51 Pulse 47 L 05/14/23 09:09 Resp 16 05/14/23 07:51 BP 82/54 L 05/14/23 09:55 Pulse Ox 96 05/14/23 09:55 Laboratory Results - last 24 hr 05/14/23 05/14/23 05/14/23 00:50 00:50 00:50 WBC RBC Hgb Hct MCV MCH MCHC RDW Plt Count MPV Immature Gran % Neutrophils % Lymphocytes % Monocytes % Eosinophils % Basophils % Nucleated RBC % Absolute Neutrophils Absolute Lymphocytes Absolute Monocytes Absolute Eosinophils Absolute Basophils PT INR APTT VBG Lactate 2.8 H* Sodium 140 Potassium 3.7 Chloride 105 Carbon Dioxide 26.3 Anion Gap 8.7 BUN 36 H Creatinine 1.2 Est GFR (CKD-EPI 2020) 58.53 Glucose 155 H Calcium 9.0 Magnesium 1.7 L Total Bilirubin 0.4 AST 21 ALT 18 Alkaline Phosphatase 81 Total Protein 6.8 Albumin 2.6 L Procalcitonin 3.1 TSH 1.63 Urine Color Urine Clarity Urine pH Ur Specific Irvine Urine Protein Urine Ketones Urine Blood Urine Nitrite Urine Bilirubin Urine Urobilinogen Ur Leukocyte Esterase Urine RBC Urine WBC Ur Epithelial Cells Urine Crystals Urine Bacteria Urine Casts Urine Mucus Ur Culture Indicated? Urine Glucose COVID-19 Source Nasopharynx SARS-CoV-2 (PCR) Negative Influenza Type A (PCR) Negative Influenza Type B (PCR) Negative RSV (PCR) Negative 05/14/23 05/14/23 05/14/23 00:50 00:50 01:39 WBC 8.53 RBC 3.37 L Hgb 10.6 L Hct 32.4 L MCV 96 H MCH 31.5 MCHC 32.7 RDW 13.2 Plt Count 225 MPV 9.5 Immature Gran % 0.6 Neutrophils % 92.1 Lymphocytes % 1.9 Monocytes % 5.0 Eosinophils % 0.0 Basophils % 0.4 Nucleated RBC % 0.0 Absolute Neutrophils 7.86 H Absolute Lymphocytes 0.16 L Absolute Monocytes 0.43 Absolute Eosinophils 0.00 Absolute Basophils 0.03 PT 10.9 INR 1.1 APTT 23.7 VBG Lactate Sodium Potassium Chloride Carbon Dioxide Anion Gap BUN Creatinine Est GFR (CKD-EPI 2020) Glucose Calcium Magnesium Total Bilirubin AST ALT Alkaline Phosphatase Total Protein Albumin Procalcitonin TSH Urine Color Yellow Urine Clarity Sl Cloudy Urine pH 6.5 Ur Specific Irvine 1.025 Urine Protein 30 H Urine Ketones Negative Urine Blood Small H Urine Nitrite Positive H Urine Bilirubin Negative Urine Urobilinogen 0.2 Ur Leukocyte Esterase Small H Urine RBC 3-5 H Urine WBC 10-20 H Ur Epithelial Cells Few Urine Crystals Negative Urine Bacteria Few Urine Casts Negative Urine Mucus Negative Ur Culture Indicated? Yes Urine Glucose Negative COVID-19 Source SARS-CoV-2 (PCR) Influenza Type A (PCR) Influenza Type B (PCR) RSV (PCR) 05/14/23 05/14/23 05:46 06:42 WBC RBC Hgb Hct MCV MCH MCHC RDW Plt Count MPV Immature Gran % Neutrophils % Lymphocytes % Monocytes % Eosinophils % Basophils % Nucleated RBC % Absolute Neutrophils Absolute Lymphocytes Absolute Monocytes Absolute Eosinophils Absolute Basophils PT INR APTT VBG Lactate 0.7 Sodium Potassium Chloride Carbon Dioxide Anion Gap BUN Creatinine Est GFR (CKD-EPI 2020) Glucose Calcium Magnesium Total Bilirubin AST ALT Alkaline Phosphatase Total Protein Albumin Procalcitonin TSH Urine Color Urine Clarity Urine pH Ur Specific Irvine Urine Protein Urine Ketones Urine Blood Urine Nitrite Urine Bilirubin Urine Urobilinogen Ur Leukocyte Esterase Urine RBC Urine WBC Ur Epithelial Cells Urine Crystals Urine Bacteria Urine Casts Urine Mucus Ur Culture Indicated? Urine Glucose COVID-19 Source Cancelled SARS-CoV-2 (PCR) Cancelled Influenza Type A (PCR) Influenza Type B (PCR) RSV (PCR) Time Spent with Patient Time Spent with Patient: >50 minutes Time was spent: preparing to see the patient(eg.review tests), obtaining and/or reviewing separately otained hiistory, ordering medications,tests, procedures, referring, communicating with other health ocular care technologist, indepentently interpreting results, counseling the patient and care coordination
[2023-05-14 10:18] LABS: Troponin I 57 ng/L (<or=60)
[2023-05-14 11:46] LABS: Troponin I < 50 ng/L (<or=60)
[2023-05-14] MEDS: Hydrocortisone SOD SUC. 100 MG VIAL 50 MG IVP ×3 (12:06→23:57)
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
[2023-05-14] MEDS: MEROPENEM 1 GM in Normal Saline 100 ML IVPB (15:07)
[2023-05-14] MEDS: VANCOMYCIN/WATER (PEG) 1.75 GM/350 ML BAG IV (15:50)
--- NOTE | 2023-05-14 18:43 | POCUS_ITS ---
Pocus Exam Limited Cardiac Exam DATE OF EXAM: 05/14/23 TIME OF EXAM: 11:02 PROVIDER THAT PERFORMED THE STUDY: Dwain Moreno IS THIS A REPEAT EXAM DURING THIS ENCOUNTER: no REASON FOR EXAM: Hypotension VISUALIZED STRUCTURES: four chambers, LVOT, aortic valve, Interventricular septum and IVC VIEW OBTAINED: Apical 4-Chamber, Parasternal long-axis, Parasternal short-axis (poor image of PSAX) and Subxiphoid PERTINENT FINDINGS/IMPRESSION: Plethoric IVC (IVC 2.69 w/ less than 10% collapsability w/ inspiration); no IVC inspiratory collapsability, No LV dysf unction, No pericardial effusion, No RV dilation and No RV dysfunction INCIDENTAL FINDINGS: mild LVH, mild RVH, mild to moderate mitral regurgitation, moderate tricuspid regurgitation, mild aortic insufficiency Exam complete
[2023-05-14 20:36] LABS: Lab Add On Test DONE
[2023-05-14] MEDS: Memantine 5 MG TAB 10 MG PO (20:46)
[2023-05-14] MEDS: Donepezil 5 MG TAB (21:25)
[2023-05-14] MEDS: Donepezil 5 MG TAB 10 MG PO (21:25)
[2023-05-15] VITALS (33 sets, daily range): BP systolic 119–155; BP diastolic 56–110; PULSE 42–76; RESP 12–26; TEMP 35.9–36.7; O2SAT 94–96
--- NOTE | 2023-05-15 | DI.US_ITS ---
Exam(s) US RENAL EXAM: US RENAL CLINICAL HISTORY: urosepsis, r/o pyelonephritis. TECHNIQUE: Meeks scale, color and spectral Doppler were used. COMPARISON: No exams were available for comparison FINDINGS: Renal size in cm: Right: 11.4. Left: 10.5. Echogenicity: Normal. Hydronephrosis: No. Cyst or mass: No. Nephrolithiasis: No. Other findings: None. Bladder:There is limited evaluation of the urinary bladder which was not full. The patient has a Fol ey catheter in place. Ureteral jets: Right: Not visualized on this examination. Left: Not visualized on this examination. Prevoid vol:184 cc Postvoid vol:Not obtained on this examination. Prostate: 24 cc Renal color flow: Symmetric and within normal limits. IMPRESSION: 1. No hydronephrosis or nephrolithiasis. 2. Unremarkable kidneys. 3. Limited evaluation of the urinary bladder. There is a Stephenson catheter in place. DATA REPOSITORY:
[2023-05-15] MEDS: MEROPENEM 1 GM in Normal Saline 100 ML IVPB ×2 (01:08→15:40)
[2023-05-15] MEDS: Hydrocortisone SOD SUC. 100 MG VIAL 50 MG IVP ×4 (05:52→23:24)
[2023-05-15 06:04] LABS: ALT 22 U/L (16-63); AST 22 U/L (15-37); Alkaline Phosphatase 66 U/L (46-116); Anion Gap 8.7 mmol/L (3-11); BUN 32 mg/dL (7-18); Bilirubin, Total 0.2 mg/dL (0.2-1.0); C-Reactive Protein 11.28 mg/dL (0.0-0.3); CO2 24.3 mmol/L (21.0-32.0); CREATININE 0.7 mg/dL (0.70-1.30); Calcium 8.5 mg/dL (8.5-10.1); Chloride 108 mmol/L (98-107); Estimated GFR 89.18 (mL/min/1.73m2); Glucose 156 mg/dL (74-106); Magnesium 2.2 mg/dL (1.8-2.4); Potassium 3.8 mmol/L (3.5-5.1); Sodium 141 mmol/L (136-145)
[2023-05-15 06:55] LABS: HCT 30.5 % (40.0-50.0); HGB 10.3 g/dL (13.5-17.5); MCH 32.4 pg (27.0-33.0); MCHC 33.8 % (32.0-36.0); MCV 96 fL (80-95); MPV 10.5 fL (8.0-11.0); Platelet Count 210 10^3/uL (130-400); RBC 3.18 10^6/uL (4.36-5.78); RDW 13.1 % (11.8-14.1); RDW-SD 46.1 fL; WBC 6.46 10^3/uL (4.4-10.8)
--- NOTE | 2023-05-15 08:13 | CMPROGNOTE_ITS ---
Date of service: 05/15/23 Time of Service: 08:13 Care Management Progress Note Progress Note Text Progress Note Text: S/O:Silvestre was sitting up in bed visiting with his and son when CM met with him. He was smiling and pleasant but vague in his responses. Ivy, his , engaged with CM and was able to answer questions. She informed CM that Silvestre' code status was changed from full code to DNR/DNI this morning. She stated it would be what he would want and that she is comfortable with that decision. Ivy also shared that Silvestre goes to [facility] 2 days a week and really enjoys the program. In addition he has caregivers for 6 hours a day twice a week. A Palliative Care consult was ordered today at the family's request. A: Silvestre is an 88 year old man admitted on 05/14/23 with CAP, UTI and dementia P:Plan is undetermined at this time as it is based on progress.? Spouse's preference would be for Silvestre to return home when medically cleared by provider.? If he requires placement, his would like him to go to a [facility] in [place].? She has already contacted the facility and Silvestre is on their waitlist.? CM will continue to support patient, his family and any discharge planning needs.
[2023-05-15] MEDS: Memantine 5 MG TAB 10 MG PO ×2 (09:15→21:03)
[2023-05-15] MEDS: Ascorbic Acid 500 MG TAB PO (09:15)
[2023-05-15] MEDS: Zinc Sulfate 220 MG TAB PO (09:15)
[2023-05-15] MEDS: Sertraline 25 MG TAB 50 MG PO (09:16)
[2023-05-15] MEDS: Naltrexone 50 MG TAB 25 MG PO (09:16)
[2023-05-15] MEDS: Aspirin E.C. 81 MG TABEC PO (09:16)
[2023-05-15] MEDS: Tamsulosin 0.4 MG CAPCR PO (09:17)
--- NOTE | 2023-05-15 09:54 | PGE_ITS ---
Date of Service Date of service: 05/15/23 Time of Service: 09:54 Assessment and Plan Assessment and plan (1) Sepsis: Status: Acute Assessment and plan: Secondary to gram-negative rods due to recurrent UTI. I discussed with family possibility of him going on suppressive antibiotic regimen. Patient needs to be encouraged to drink adequate fluids to prevent dehydration. Patient did not require vasopressors and is hemodynamically stable and can be transferred to the medical/surgical floor. We will recheck labs including repeat blood cultures in the morning. (2) Bradycardia: Status: Acute Assessment and plan: Rhythm remains sinus bradycardia lowest rate of 45. Presently in the 60s. I think this was phenomenon from his sepsis. (3) Acute UTI: Status: Acute Assessment and plan: as above. also needs imaging of his kidneys, renal ultrasound ordered (4) Infiltrate of lower lobe of left lung present on imaging study: Status: Acute Assessment and plan: probably atelectasis but can not exclude pneumonia but I do not feel that this is the cause for his sepsis and hemodynamic derangements (5) Atelectasis, left: Status: Acute Assessment and plan: acapella and IS as tolerated, encourage upright as much as possible; use nebulizers prn but not actively wheezing now (6) Alzheimer's dementia: Status: Acute Assessment and plan: continue home meds (Namenda and Aricept) (7) Acute dehydration: Status: Acute Assessment and plan: POCUS exam yesterday showed that he had been adequately resuscitated with fluids. We will encourage oral intake and avoid further IV foods. (8) Urinary retention: Status: Acute Assessment and plan: perdomo changed and is funcitoning (9) HTN (hypertension): Status: Chronic Assessment and plan: Continue to hold his Norvasc and his benazepril (10) DVT prophylaxis: Status: Acute Assessment and plan: heparin SC (11) Discharge planning issues: Status: Acute Assessment and plan: patient to return home w/ home health when medically stable; family including his son and daughter all agree the patient would want a DNR/DNI status. CODE STATUS been changed Subjective Subjective Interval history since last seen: Patienti is much more alert and oriented to person, cheerful and talking w/ his family (son and ). Answered many questions for both the patient's as well as the patient's son and via telephone the patient's daughter. Family is concerned that he does not drink enough fluids and has recurrent UTIs. He has obstructive uropathy symptoms and his was being taught to perform intermittent catheterizations at home but could not handle that so the patient ended up with an indwelling Perdomo catheter before the came up here from [place] to visit back in January. I explained to the and his children that there is little we can do to force him to eat and drink he seems to be eating and drinking quite well today but apparently when he gets infections he does become less receptive to oral intake and becomes more more somnolent. I told him that they need to try to encourage foods that are high in water content since he does have a pretty good appetite and seems to eat fairly well but just does not take enough fluids. I do not think placement of a Mediport or feeding tube would be a good idea given the severity of his dementia is only become sources for him to pull out and become other potential sources for infection and is not going to address the long-term issue of his eventual demise from his dementia. Family has concluded that he would not want life support in the event of cardiopulmonary arrest and as such they have agreed to a DNR/DNI order. I explained to him that he has a gram-negative bacteremia causing sepsis but he seems to be responding to the meropenem that we have him on. We will get a renal ultrasound today to rule out any obstructive uropathy at the higher level of his urinary tract such as kidney stones and also rule out pyelonephritis. His Perdomo catheter was changed on admission and is now draining clear yellow urine. Patient is hemodynamically stable has not required any vasopressors and can be transferred to the medical/surgical floor. Exam Narrative Exam Narrative: Silvestre is alert he is oriented to person he is talkative pleasant and seems to be eating. Lungs are clear anteriorly posteriorly has some diminished breath sounds at the bases Heart is regular Abdomen soft nondistended nontender Perdomo catheter draining clear yellow urine Objective Last Vital Signs Temp 36.5 C 05/15/23 04:00 Pulse 47 L 05/15/23 06:01 Resp 13 05/15/23 06:01 BP 138/64 05/15/23 06:01 Pulse Ox 96 05/15/23 04:00 Laboratory Results - last 24 hr 08/20/23 08/20/23 08/20/23 00:50 00:50 11:13 WBC RBC Hgb Hct MCV MCH MCHC RDW Plt Count MPV VBG Lactate Sodium Potassium Chloride Carbon Dioxide Anion Gap BUN Creatinine Est GFR (CKD-EPI 2020) Glucose Calcium Magnesium Total Bilirubin AST ALT Alkaline Phosphatase Troponin I 57 < 50 C-Reactive Protein Total Protein Albumin Add-On Test Request DONE 05/15/23 05/15/23 05/15/23 05:23 05:25 05:25 WBC 6.46 RBC 3.18 L Hgb 10.3 L Hct 30.5 L MCV 96 H MCH 32.4 MCHC 33.8 RDW 13.1 Plt Count 210 MPV 10.5 VBG Lactate 1.0 Sodium 141 Potassium 3.8 Chloride 108 H Carbon Dioxide 24.3 Anion Gap 8.7 BUN 32 H Creatinine 0.7 Est GFR (CKD-EPI 2020) 89.18 Glucose 156 H Calcium 8.5 Magnesium 2.2 Total Bilirubin 0.2 AST 22 ALT 22 Alkaline Phosphatase 66 Troponin I C-Reactive Protein 11.28 H Total Protein 6.0 L Albumin 2.0 L Add-On Test Request Time Spent with Patient Time Spent with Patient: 35-49 minutes Time was spent: preparing to see the patient(eg.review tests), obtaining and/or reviewing separately otained hiistory, ordering medications,tests, procedures, referring, communicating with other health child care center assistant director, indepentently interpreting results, counseling the patient and care coordination
[2023-05-15] MEDS: Heparin 5,000 UNITS/ML VIAL 5000 UNITS SC ×2 (13:19→21:04)
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
[2023-05-15] MEDS: VANCOMYCIN/WATER (PEG) 1.25 GM/250 ML BAG IV (16:43)
[2023-05-15] MEDS: Donepezil 5 MG TAB 10 MG PO (21:03)
[2023-05-15] MEDS: Finasteride 5 MG TAB PO (21:03)
[2023-05-16] MEDS: MEROPENEM 1 GM in Normal Saline 100 ML IVPB ×2 (01:00→13:36)
[2023-05-16 03:32] VITALS: BP 146/87; PULSE 67; RESP 18; TEMP 36.1; O2SAT 95
[2023-05-16] MEDS: Heparin 5,000 UNITS/ML VIAL 5000 UNITS SC ×3 (06:59→22:16)
[2023-05-16 07:00] VITALS: PULSE 61
[2023-05-16] MEDS: Normal Saline Flush 10 ML SYR IVP ×2 (07:00→16:59)
[2023-05-16] MEDS: Hydrocortisone SOD SUC. 100 MG VIAL 50 MG IVP ×3 (07:00→16:59)
[2023-05-16 07:13] LABS: Abs Immature Grans 0.03 10^3/uL (0.0-0.06); Absolute Basophil Count 0.01 10^3/uL (0.0-0.2); Absolute Lymphocyte Count 0.45 10^3/uL (1.2-3.4); Absolute Monocyte Count 0.31 10^3/uL (0.1-0.8); Absolute Neutrophil Count 6.54 10^3/uL (1.2-6.7); Basophils % 0.1; HCT 30.1 % (40.0-50.0); HGB 9.9 g/dL (13.5-17.5); Immature Grans % 0.4; Lymphocytes % 6.1; MCH 31.2 pg (27.0-33.0); MCHC 32.9 % (32.0-36.0); MCV 95 fL (80-95); MPV 10.3 fL (8.0-11.0); Monocytes % 4.2; Neutrophils % 89.2; Platelet Count 263 10^3/uL (130-400); RBC 3.17 10^6/uL (4.36-5.78); RDW 12.9 % (11.8-14.1); RDW-SD 44.8 fL; WBC 7.34 10^3/uL (4.4-10.8)
[2023-05-16] MEDS: Naltrexone 50 MG TAB 25 MG PO (07:26)
[2023-05-16] MEDS: Sertraline 25 MG TAB 50 MG PO (07:26)
[2023-05-16] MEDS: Ascorbic Acid 500 MG TAB PO (07:26)
[2023-05-16] MEDS: Tamsulosin 0.4 MG CAPCR PO (07:26)
[2023-05-16] MEDS: Aspirin E.C. 81 MG TABEC PO (07:26)
[2023-05-16] MEDS: Zinc Sulfate 220 MG TAB PO (07:26)
[2023-05-16] MEDS: Memantine 5 MG TAB 10 MG PO ×2 (07:31→22:19)
[2023-05-16 07:35] LABS: Anion Gap 8.2 mmol/L (3-11); BUN 36 mg/dL (7-18); CO2 24.8 mmol/L (21.0-32.0); CREATININE 0.7 mg/dL (0.70-1.30); Calcium 8.6 mg/dL (8.5-10.1); Chloride 110 mmol/L (98-107); Estimated GFR 89.18 (mL/min/1.73m2); Glucose 147 mg/dL (74-106); Potassium 3.6 mmol/L (3.5-5.1); Sodium 143 mmol/L (136-145)
--- NOTE | 2023-05-16 08:00 | DI.US_ITS ---
APPROVED REPORT EXAM: Comprehensive 2D, Doppler, and color-flow Echocardiogram Patient Location: In-Patient Room/Bed: [address] Hoist Operator: Juana Holguin RDCS (AE) Indications: Sepsis, Evaluate LV and RV function, Dementia Other Information Study Quality: Adequate. Technically limited study due to body habitus, inability to position patient exam done supine, unable to perform breathing maneurvers . Conclusion Normal left ventricular wall thickness and chamber size. Ejection fraction is 56%. Wall motion is n ormal Normal right ventricular size and systolic function Left atrium is mildly dilated. Right atrial size is normal Aortic valve is sclerotic and trileaflet with mild regurgitation Normal mitral valve, moderate regurgitation Normal tricuspid valve with mild to moderate regurgitation. Estimated right ventricular systolic pre ssure is 34 mmHg Trivial pericardial effusion Wall motion Left Ventricle The left ventricle is normal size. The overall left ventricular systolic function appears normal. The re is normal left ventricular wall thickness. There is normal LV segmental wall motion. There is no v entricular septal defect visualized. LVEF is 56%. Right Ventricle The right ventricle is normal size. The right ventricular systolic function is normal. Atria Left atrium is mildly dilated. The right atrium size is normal. The interatrial septum is intact with no evidence for an atrial septal defect. Aortic Valve The Aortic valve is sclerotic. Aortic valve is trileaflet. There is no aortic valvular stenosis. Mil d aortic regurgitation. Mitral Valve The mitral valve is normal in structure. No evidence of mitral valve stenosis. Moderate mitral regur gitation. Tricuspid Valve The tricuspid valve is normal in structure. There is no tricuspid valve stenosis. Mild to moderate t ricuspid regurgitation. Pulmonic Valve The pulmonary valve is normal in structure. There is no pulmonic valvular stenosis. Trace pulmonic re gurgitation. Great Vessels The aortic root is normal in size. Ascending aorta is not well visualized. The IVC collapses <50% wit h normal respirattion Pericardium Trace pericardial effusion. 2D Dimensions IVSD d PLAX 0.81 cm M: 0.6-1.2 LVPW d PLAX 0.77 cm M: 0.6 - 1.2 LVID d PLAX 4.85 cm M: 4.2 - 5.8 LVDs 3.45 cm M: 2.5 - 4.0 Ao Root d 3.32 cm M: 3.1 - 3.7 RA Area A4C 18.11 cm2 LV EF Teichholz 55.0 % FS 28.55 % M-Mode TAPSE 2.72 cm (M/F) >1.7 LV Diastology MV E' medial 0.100 (>0.07 m/s) E/A Ratio 1.0 LV E/e MED 7.99 (<14) MV E Vmax 0.80 (0.4-1.3 m/s) MV E' lateral 0.102 (>0.1 m/s) MV A Vmax 0.80 (0.4-1.3 m/s) LV E/e LAT 7.79 (<14) MV E/E' medial 7.99 MV E/E' lateral 7.79 MV (E/E' average) 7.89 Aortic Valve LVOT Vmax 1.16 m/s AoV Area Vmax 2.43 cm2 LVOT Peak Grad 5.4 mmHg LVOT Mean Grad 2.6 mmHg LVOT Diam s 2.00 cm AoV Vmax 1.58 m/s Velocity Ratio 0.73 AoV Peak Grad 9.9 mmHg LVOT SV 96.84 mL AoV Mean Grad 4.5 mmHg AoV Area VTI 2.54 cm2 Mitral Valve MV DT 203 (160-240 msec) MV Vmax TIPS 0.81 m/s MV Mean Grad 1.2 (<2mmHg) MV VTI 0.274 m Pulmonary Valve PV Mean Grad 2.5 mmHg RVOT Peak Gr. 3.18 mmHg RVOT Mean Gr. 1.30 mmHg RVOT VTI 0.193 m RVOT Vmax 0.89 m/s Tricuspid Valve TR Peak Grad 31.4 mmHg TR Vmax 2.80 m/s
--- NOTE | 2023-05-16 08:00 | RT.EKG_ITS ---
APPROVED REPORT Exam: Resting ECG Reason for Exam: 2nd degree type I AV block Patient Location: I HR:58 bpm ECG Measurements Heart Rate 58 AXIS AZ 206 P 0 QRSd 91 QRS 51 QT 471 T 29 QTc 463 Conclusion Probable Mobitz 1 second-degree AV block ([place]) Borderline low voltage, extremity leads...all extremity leads <0.6mV
[2023-05-16] MEDS: Magnesium Oxide 400 MG TAB PO (08:39)
[2023-05-16 08:45] LABS: Lab Add On Test DONE
--- NOTE | 2023-05-16 08:50 | PCPN_ITS ---
Date of service: 05/16/23 Time of Service: 13:06 Assessment and Plan Assessment and plan (1) Palliative care encounter: Status: Acute Assessment and plan: Mr. Hernandez is an 88-year-old gentleman with moderate stage dementia previously living at home with his as primary caregiver, with help from domestic helper as well as spending 2 to 3 days a week in adult daycare. Family describes decline in function over the last 3 to 4 months, now requiring indwelling Stephenson catheter because of outlet obstruction and incontinence; and now this has resulted in Multiresistant E. coli UTI with bacteremia. Goals of care discussion today involving following: -Current quality of life, activities, situations to avoid, goals over the next few months, caregiver stress, -Discussed meaning of recurrent infections and how this may be for shadowing decrease in function, but difficult to tell. This is his first hospitalization in several years. -Advanced directive not available but discussed: He would not want treatment if there is no hope of recovery. - very concerned about knowing what recovery will be from this infection and trying to decide whether he should be placed in a community longterm now or wh ether he will be able to return home with previous supports. After discussion following was agreed upon: - and son unequivocally believe that he would not want CPR nor would he want to be intubated in any situation - and son unequivocally believe that he would not want a feeding tube in any situation. - overall feels that this hospitalization has gone smoothly and he has recovered function. After discharge, they would want to bring him back to the ED for IV hydration if needed. They feel that patient is unable to orally right hydrate given his short large bowel once he gets significantly dehydrated, does not seem to mind having IVs placed and blood work done in the ER for hydration, and responds well. -For now, she would want to bring him back to be evaluated and treated, receive IV antibiotics if indicated.-- -However, should he have further decline in his ability to function (ambulate, eat, speak and interact with others) or seemed frustrated with his limitations, they would want to reconsider limitations in treatment. -They would prefer that he be treated with oral antibiotics whenever possible. For now they will consider IV antibiotics. However, with further decline in function, they would want to reconsider limitations in treatment - COLST form was completed today and entered in the chart reflecting above discussion (which confirms Dr. Moreno's reporting from 05/15/23) -Regarding placement options in [place], I recommended that Dwain speak with our case management team. I also suggested that she talk with the social studies department chair she has been working with in [place] or the [place] local [facility] [employer] for additional advice. Due to time constraints, I was unable to spend more than an hour with the family. I have volunteered to come back and see them again on , can connect with other family members video seeing if necessary. (2) Advanced care planning/counseling discussion: Status: Acute Assessment and plan: 16 to 30 minutes spent today on Advance Care Planning. Patient and family participated voluntarily. Advance care planning may include (not limited to) explanation and discussion of advance directives, choosing and appointing healthcare agents, alternatives to various ACP tools, discussion of (and if indicated, completion of) COLST form, discussion of patient's values and overall goals for treatment, palliative and disease directive care options, ways to av oid hospital readmission including hospice discussions, care preferences should the patient's several other adverse health events.See today's palliative care note for additional information. (3) Mixed Alzheimer's and vascular dementia: Status: Acute (4) Colostomy in place: Status: Chronic (5) Indwelling Stephenson catheter present: Status: Acute Subjective Subjective Interval history since last seen: Mr. Hernandez is an 88-year-old gentleman with a history of mixed vascular/Alzheimer's dementia, ASCVD, SHAKEEL, BPH with urinary retention (chronic Stephenson catheter a month ago oh), colostomy (history of colon cancer 2007). Family met for their initial Palliative Care Team appointment in our outpatient Palliative Care Clinic about 3 weeks ago to begin discussions regarding advance care planning and goals of care. 2 days ago he was admitted to [facility] because of urosepsis with bacteremia, causing weakness and reduced mental status.He was started antibiotics and as per notes h as been clinically improving. Note from Dr. Bennett from 2022 is that CODE STATUS has been changed to DNR/DNI, but no COLST form documenting this on file in his chart. Dwain explains that she requested a consult from Palliative Care Team to review advance care planning and also for help with discharge planning. She had questions about what the CODE STATUS changes meant and if there is anything else regarding treatment limitations they should contact sitter. I met today with Dwain as well as son Salena who is visiting from [place]. Patient was unable to participate in discussion because of inability to process and understand questions. Dementia: Sounds like he has moderate stage dementia. Speech described as fluent and he loves to talk to people and tell stories. No short-term memory remains. No behavioral issues; never combative, occasionally more confused but does not sound like he has ever had delirium, hallucinations. Current hospitalization notes discussed that over the last month or so he has had decreased oral intake, especially fluids. Thirst is more diminished than appetite. At the time of admission he was taking donepezil, memantadine, sertraline Previous notes from [facility] states they have been working with a business info consultant in [place] to help them with planning around Grupo's illness. They were recommended to hire caregivers in the home in order to keep him home for as long as possible. The plan is to transfer him to a longterm if he can no longer be cared for at home. His name is on wait list at several of these care homes. is now thinking that they should have him move in sooner. She is very worried about what she would do if there is no room in any of the homes that she visited and liked. She does not feel comfortable sending him to a jail, was hoping we could make some specific recommendations for placement in [place]. He has not had a hospital admission for years prior to this current hospital admission. : and son report that he has developed urinary retention starting about 4 5 months ago. was performing intermittent I&O catheterization several times a day. This became technically difficult: Catheter was kinking up, catheterization was occasionally traumatic with blood. Then about a month ago the patient became incontinent of urine almost daily in addition to urinary retention. At that point home health placed a Stephenson catheter and it is remained in since then. He has seen urologist in [place] in the past but not since the Stephenson was placed. He has not seen urologist since coming to [place] this year. No urology consultation in the hospital. hopes that the catheter remains in place. She was not aware of increased risk of UTI with indwelling catheter. He does have a history of multiple UTIs in the last few months treated as an outpatient. He has never needed admission for or UTI. Dehydration/colostomy: Family reports that patient gets severely dehydrated about every 2 weeks and needs to be taken to the ED for IV hydration. He does not like to drink but will eat food. Because he has had most of his colon removed move, very difficult for him to orally rehydrate. He does not mind going to the ED for rehydration. Symptoms of dehydration include lethargy, sleepiness, sedation and poor balance. Care Team: Primary Care physician: ?SUHAIL Bernard? (sees Ghassan Pearson MD, of [facility] in [place], [place]) Social HX:Patient and Dwain lives in [facility] in the summer and spend the geller in [facility]. 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 Additional services:Private caregiver 2 afternoons a week (Lois Landis) home health [employer] PRESIDENT/PRACTICE OWNER twice a week. [facility] twice weekly. While in [place] private help was coming in several days a week and he was going to adult daycare 3 days a week. Impression of currents health status: and son note marked decrease in function, verbal ability, stamina and ability to walk distances over the last 3 to 4 months. Patient unable to answer What bothers you the most: N/A What worries you the most: Getting the right placement once they are no longer able to care for him at home. Goals: Family wants him admitted to hospice when eligible. wants to keep him at home as long as possible. Function: Has Stephenson catheter and colostomy long-term. Ambulation: Walks without any aid ADLs: Needs help with dressing, bathing, toileting. Can feed himself iADLs: Totally dependent Hearing: Moderately decreased hearing Vision: Seems okay Cognition: Appears to have moderate stage dementia Falls: Rare Palliative Performance Scale % Ambulation Activity and Evidence of Disease Self Care Intake Level of Consciousness 100 Full Normal activity, no evidence of disease Full Normal Full 90 Full Normal activity, some evidence of disease Full Normal Full 80 Full Normal activity with effort, some evidence of disease Full Normal or reduced Full 70 Reduced Unable to do normal work, some evidence of disease Full Normal or reduced Full 60 Reduced Unable to do hobby or some housework, significant disease Occasional assist necessary Normal or reduced Full or confusion 50 Mainly sit/lie Unable to do any work, extensive disease Considerable assistance required Normal or reduced Full or confusion 40 Mainly in bed Unable to do any work, extensive disease Mainly assistance Normal or reduced Full, drowsy, or confusion 30 Totally bed bound Unable to do any work, extensive disease Total care Reduced Full, drowsy, or confusion 20 Totally bed bound Unable to do any work, extensive disease Total care Minimal sips Full, drowsy, or confusion 10 Totally bed bound Unable to do any work, extensive disease Total care Mouth care only Drowsy or coma 0 - - - - Patient Score: 60 Spiritual history: Not queried Palliative review of systems: Pain: Family thinks not Dyspnea: Family thinks not GI symptoms: 3 times in the last month has pulled off his colostomy bag at night (and has had to clean it all up) Appetite: Appetite is good but he does not drink. Depression: Family thinks not Anxiety: None Emotional Distress: Spiritual/Existential Distress: Labs: 05/16/2023 Cr: 0.7 Liver panel: Normal Albumin: 3.12 days before admission CBC: Hemoglobin 9.9 (12.42 days before admission) Advanced Care Planning: Advanced Directive: reports there is 1 but she does not have a copy Health Care Agent: Dwain COLST: No COLST on file, changed to DNR/DNI by hospitalist 05/15/2023 Limitations: Exam Narrative Exam Narrative: Pleasant thin awake and alert elderly gentleman laying in bed having echocardiogram done. Playing with his electrodes. Single to 3 word answers in discussion with his son Objective Last Vital Signs Temp 36.1 C L 05/16/23 03:32 Pulse 67 05/16/23 03:32 Resp 18 05/16/23 03:32 BP 146/87 H 05/16/23 03:32 Pulse Ox 95 05/16/23 03:32 Laboratory Results - last 24 hr 05/16/23 05/16/23 05/16/23 06:30 06:30 06:30 WBC 7.34 RBC 3.17 L Hgb 9.9 L Hct 30.1 L MCV 95 MCH 31.2 MCHC 32.9 RDW 12.9 Plt Count 263 MPV 10.3 Immature Gran % 0.4 Neutrophils % 89.2 Lymphocytes % 6.1 Monocytes % 4.2 Eosinophils % 0.0 Basophils % 0.1 Nucleated RBC % 0.0 Absolute Neutrophils 6.54 Absolute Lymphocytes 0.45 L Absolute Monocytes 0.31 Absolute Eosinophils 0.00 Absolute Basophils 0.01 Sodium 143 Potassium 3.6 Chloride 110 H Carbon Dioxide 24.8 Anion Gap 8.2 BUN 36 H Creatinine 0.7 Est GFR (CKD-EPI 2020) 89.18 Glucose 147 H Calcium 8.6 Add-On Test Request DONE
[2023-05-16 08:56] LABS: Magnesium 2.1 mg/dL (1.8-2.4)
--- NOTE | 2023-05-16 10:32 | PDOC.CMPRO ---
Date of service: 05/16/23 Time of Service: 10:33 Care Management Progress Note Progress Note Text Progress Note Text: S/O:Silvestre was sitting up in a chair when CM met with him. He appeared to be in good spirits and greeted CN enthusiastically. His and son were present and commented that he is much more awake today. His described him as manic. They informed CM that they have been told that Silvestre has a MDR (multi-drug resistant) bacteria in his blood. They were concerned about treatment options. CM was able to assure them that there are antibiotics that are effective and that he is on such a drug. His son observed that his Dad definitely seems to be improving, so the medication must be working. A: Silvestre is an 88 year old man admitted on 05/14/23 with CAP, UTI and dementia P:Silvestre will likely be discharged home when medically cleared by provider. Mentally he is much clearer and more awake. PT has completed an evaluation and have determined that he is safe to go home with no services..? If Silvestre requires placement, his would like him to go to a [facility] in [place].? She has already contacted the facility and Silvestre is on their waiting list.? CM will continue to support patient, his family and any discharge planning needs.
--- NOTE | 2023-05-16 13:03 | W.PM.PROGNOT ---
Date of Service Date of service: 05/16/23 Time of Service: 13:05 Assessment and Plan Assessment and plan (1) Sepsis: Status: Acute Assessment and plan: Secondary to ESBL E. coli. Sensitive to imipenem. Patient currently on meropenem. Repeat blood cultures pending. (2) Bradycardia: Status: Acute Assessment and plan: No longer bradycardic but remains in sinus rhythm with intermittent second-degree AV block type I, Wenkebach, avoid AV rosalinda blocking medications. Discontinue telemetry as he is not a candidate for pacemaker anyways. (3) Acute UTI: Status: Acute Assessment and plan: as above. Ultrasound of his kidneys yesterday showed no hydronephrosis or nephrolithiasis. Kidneys were normal size. Normal echogenicity. (4) Infiltrate of lower lobe of left lung present on imaging study: Status: Acute Assessment and plan: Secondary atelectasis recommend I-S and Acapella as well as early mobilization with physical therapy (5) Atelectasis, left: Status: Acute Assessment and plan: acapella and IS as tolerated, encourage upright as much as possible; use nebulizers prn but not actively wheezing now (6) Alzheimer's dementia: Status: Acute Assessment and plan: continue home meds (Namenda and Aricept) (7) Acute dehydration: Status: Resolved Assessment and plan: Encourage p.o. fluid intake (8) Urinary retention: Status: Acute Assessment and plan: perdomo changed and is funcitoning (9) HTN (hypertension): Status: Chronic Assessment and plan: Continue to hold his Norvasc and his benazepril (10) DVT prophylaxis: Status: Acute Assessment and plan: heparin SC (11) Discharge planning issues: Status: Acute Assessment and plan: patient to return home w/ home health when medically stable; family including his son and daughter all agree the patient would want a DNR/DNI status. CODE STATUS been changed Subjective Subjective Interval history since last seen: Patient has become more agitated today. Family has noted that he is almost manic like according to his daughter and son's reporting. They say that they have not seen him this animated in couple years. I explained to them that it is not uncommon for patient's w/ dementia and especially w/ sepsis for them to have encephalopathy or delirum. He initially presented w/ decreased cognition and now is more animated. I think that he probably is suffering from some sundowning due to his change in environment. I am recommending that we remove telemetry, decrease the frequency of vital signs, allow him to sleep better at night (I will prescribe sleep aid, Lunesta) and avoid sleeping during the day. I would like to avoid antipsychotic agents if possilbe. I also explained to them that he has an ESBL E. coli bacteremia but is on appropriate antibiotics w/ Meropenem. he will need to complete 7 to 10 days of parenteral antibiotics. The family is concerned about him needing to remain hospitalized that long. I also went over his rhythym issues. He initially presented w/ bradycardia but now he is in NSR w/ 2nd degree Type I AV block. I explained to them that he has intermittent conduction loss. So fare he has been asymptomatic. As he is bacteremic, he would not be a candidate for a pacer and anyway type I 2nd degree AV block does not justify pacer anyway. I think given his dementia and other comorbidities, it would be best not to pursue further evaluation or treatment for heart block except to avoid AV rosalinda blocking medications. I am recommending dc his telemetry and try to reduce distractions of things he might pull at. Exam Narrative Exam Narrative: Silvestre is sitting up in the chair he is alert he is oriented only to his person he denies any discomfort Lungs are clear to auscultation Heart is regular Abdomen soft nontender nondistended Perdomo catheter draining clear yellow urine Extremities no peripheral edema he has normal range of motion and strength in both upper and lower extremities. Seems to be fidgeting and pulling at his ECG leads as well as his IV. Objective Last Vital Signs Temp 36.1 C L 05/16/23 03:32 Pulse 61 05/16/23 07:00 Resp 18 05/16/23 03:32 BP 146/87 H 05/16/23 03:32 Pulse Ox 95 05/16/23 03:32 Laboratory Results - last 24 hr 05/16/23 05/16/23 05/16/23 06:30 06:30 06:30 WBC 7.34 RBC 3.17 L Hgb 9.9 L Hct 30.1 L MCV 95 MCH 31.2 MCHC 32.9 RDW 12.9 Plt Count 263 MPV 10.3 Immature Gran % 0.4 Neutrophils % 89.2 Lymphocytes % 6.1 Monocytes % 4.2 Eosinophils % 0.0 Basophils % 0.1 Nucleated RBC % 0.0 Absolute Neutrophils 6.54 Absolute Lymphocytes 0.45 L Absolute Monocytes 0.31 Absolute Eosinophils 0.00 Absolute Basophils 0.01 Sodium 143 Potassium 3.6 Chloride 110 H Carbon Dioxide 24.8 Anion Gap 8.2 BUN 36 H Creatinine 0.7 Est GFR (CKD-EPI 2020) 89.18 Glucose 147 H Calcium 8.6 Magnesium 2.1 Add-On Test Request DONE Time Spent with Patient Time Spent with Patient: 25-34 minutes Time was spent: preparing to see the patient(eg.review tests), ordering medications,tests, procedures, referring, communicating with other health healthcare social worker, indepentently interpreting results, counseling the patient and care coordination
[2023-05-16 13:29] VITALS: PULSE 71
--- NOTE | 2023-05-16 13:56 | PT.INTREAT ---
Date of service: 05/16/23 Time of Service: 11:24 PT Notes Visit Reasons: CAPneumonia, UTI, Dehydration Inpatient Physical Therapy Treatment Note [facility] Date: 05/16/23 PRECAUTIONS: Fall, standard, contact, activity as tolerated. SUBJECTIVE: Patient is pleasant and oriented to self. and son are also present in the room for both therapy sessions. OBJECTIVE: ? PAIN: None reported, no nonverbal signs of pain. reports patient is very well medicated. VITALS: Monitored by nursing staff. ? GOALS: Goals X1 week 1. Supine-Sit independent - patient requires supervision due to advanced dementia. 2. Sit-Supine independent - patient requires supervision due to advanced dementia. 3. Sit-Stand independent - patient requires supervision due to advanced dementia. 4. Stand-Sit independent - patient requires supervision due to advanced dementia. 5. Bed-Chair independent - patient requires supervision due to advanced dementia. 6. Chair-Bed independent - patient requires supervision due to advanced dementia. 7. Gait ambulating greater than 200 feet with minimal contact guarding - met 8. Stairs? a scend and descend stairs - continue 9.? Improve balance to stand independently without assistance - met (contact guard, however no assist needed) ? Therapeutic Exercises ([id number]): Direct one-on-one instruction in therapeutic exercises to develop strength, endurance, range of motion and flexibility. ?Ambulation ? Assistive Device: FWW ? Weight bearing: full Assist: CGA ? Distance:? 25 feet am, 200 feet pm ? Deviation: reduced step height, reduced stride length which improved as he got going, toes turned out bilaterally. ? Provided skilled instruction in proper exercise performance Provided skilled manual cues to facilitate proper muscle recruitment and/or form: Patient required frequent redirection and encouragement to maintain participation. needed to reassure patient that she was coming before he would return to his room. ASSESSMENT:? Patient tolerates therapy well, resting comfortably in recliner with FATUMA alarm in place and active at the end of session, and son still present. PLAN: Continue global strengthening per plan of care until patient is medically cleared for discharge. TREATMENT CODE/TIME: 29979 Ther Ex 20 minutes beginning at 11:24, 27 minutes beginning at 14:49
[2023-05-16 15:35] VITALS: BP 134/76; PULSE 55; RESP 18; TEMP 36.4; O2SAT 95
--- NOTE | 2023-05-16 15:49 | PHA.REVIEW2 ---
Pharmacy Admission Review - Admission Clinical Review (Last Reviewed 05/14/23 @ 05:29 by Mick Wellington) Indwelling Stephenson catheter present (Acute) Mixed Alzheimer's and vascular dementia (Acute) Advanced care planning/counseling discussion (Acute) Palliative care encounter (Acute) Discharge planning issues (Acute) DVT prophylaxis (Acute) Infiltrate of lower lobe of left lung present on imaging study (Acute) Atelectasis, left (Acute) Sepsis (Acute) Bradycardia (Acute) UTI (urinary tract infection) due to urinary indwelling Stephenson catheter (Acute) Fever (Acute) General weakness (Acute) CAP (community acquired pneumonia) (Acute) Acute UTI (Acute) Bradycardia (Acute) Alzheimer's dementia (Acute) Urinary retention (Acute) No Known Allergies Allergy (Unverified 05/14/23 00:54) Resuscitation Status DNR/DNI Height 5 ft 10 in Weight 79.379 kg - Renal Dosing Renal Dosing: BUN 36 mg/dL (7-18) H 05/16/23 06:30 Creatinine 0.7 mg/dL (0.70-1.30) 05/16/23 06:30 Medications needing adjustments: Reviewed List of meds needing interventions: eCrCl 58 ml/min, all orders ok - Anticoagulation Anticoagulation: Hgb 9.9 g/dL (13.5-17.5) L 05/16/23 06:30 Hct 30.1 % (40.0-50.0) L 05/16/23 06:30 Plt Count 263 10^3/uL (130-400) 05/16/23 06:30 INR 1.1 (0.9-1.1) 05/14/23 00:50 Creatinine 0.7 mg/dL (0.70-1.30) 05/16/23 06:30 DVT Prophylaxis: Reviewed Medications: Heparin - Opiate Usage Evaluate Pain Scale/Pains Meds: N/A - Relevant Labs Sodium 143 mmol/L (136-145) 05/16/23 06:30 Potassium 3.6 mmol/L (3.5-5.1) 05/16/23 06:30 Chloride 110 mmol/L (98-107) H 05/16/23 06:30 Magnesium 2.1 mg/dL (1.8-2.4) 05/16/23 06:30 C-Reactive Protein 11.28 mg/dL (0.0-0.3) H 05/15/23 05:25 Electrolytes, C-Reactive P, ESR: Reviewed - DM Control DM Control: Glucose 147 mg/dL (74-106) H 05/16/23 06:30 DM Control: N/A - Cardiac Review Cardiac Review: Troponin I < 50 ng/L (<or=60) 05/14/23 11:13 BP, HR, EF%: Reviewed List meds needing interventions: benazepril (on hold), amlodipine at home (not ordered) - Qtc Review If Elevated, List meds needing intervention: QTc 437 on admission - IV to PO Switch IV Medications: Reviewed - Home Meds Home Med List reviewed: Reviewed Relevent Home Meds Not ordered & why?: not ordered: amlodipine - Current meds Current Medication Order Review: Reviewed
[2023-05-16] MEDS: Finasteride 5 MG TAB PO (22:19)
[2023-05-16] MEDS: Donepezil 5 MG TAB 10 MG PO (22:19)
[2023-05-16 23:41] VITALS: BP 134/76; PULSE 62; RESP 16; TEMP 36.1; O2SAT 95
[2023-05-17] MEDS: Hydrocortisone SOD SUC. 100 MG VIAL 50 MG IVP ×2 (00:07→06:31)
[2023-05-17] MEDS: MEROPENEM 1 GM in Normal Saline 100 ML IVPB ×2 (01:43→14:00)
[2023-05-17] MEDS: Normal Saline Flush 10 ML SYR IVP (06:31)
[2023-05-17] MEDS: Heparin 5,000 UNITS/ML VIAL 5000 UNITS SC ×2 (06:31→14:00)
[2023-05-17 07:20] VITALS: BP 179/80; PULSE 58; RESP 16; TEMP 36.4; O2SAT 95
[2023-05-17] MEDS: Memantine 5 MG TAB 10 MG PO (07:56)
[2023-05-17] MEDS: Benazepril 10 MG TAB 20 MG PO (07:56)
[2023-05-17] MEDS: Ascorbic Acid 500 MG TAB PO (07:56)
[2023-05-17] MEDS: Magnesium Oxide 400 MG TAB PO (07:56)
[2023-05-17] MEDS: Aspirin E.C. 81 MG TABEC PO (07:56)
[2023-05-17] MEDS: Naltrexone 50 MG TAB 25 MG PO (07:56)
[2023-05-17] MEDS: Sertraline 25 MG TAB 50 MG PO (07:57)
[2023-05-17] MEDS: Tamsulosin 0.4 MG CAPCR PO (07:57)
[2023-05-17] MEDS: Zinc Sulfate 220 MG TAB PO (07:57)
--- NOTE | 2023-05-17 09:19 | PDOC.CMPRO ---
Date of service: 05/17/23 Time of Service: 09:19 Care Management Progress Note Progress Note Text Progress Note Text: S/O:Silvestre was sitting up in a chair when CM met with him. He continues to feel well. Jose will need another 7-10 days of IV antibiotics, so he will transition to SB-1 status to complete therapy. A: Silvestre is an 88 year old man admitted on 05/14/23 with CAP, UTI and dementia P:Silvestre will transition to SB-1 to complete his course of IVAB before going home. He will be discharged home when medically cleared by provider. Mentally he is much clearer and more awake. PT has completed an evaluation and have determined that he is safe to go home with no services..? ? CM will continue to support patient, his family and any discharge planning needs.
--- NOTE | 2023-05-17 13:06 | PT.INTREAT ---
Date of service: 05/17/23 Time of Service: 10:45 PT Notes Visit Reasons: CAPneumonia, UTI, Dehydration Inpatient Physical Therapy Treatment Note [facility] Date: 05/17/23 PRECAUTIONS: Fall, standard, activity as tolerated. SUBJECTIVE: Patient reports feeling great. Son and present in room. OBJECTIVE: Supine in bed. Stephenson catheter in place. Agreeable to therapy. ? PAIN: none reported. VITALS: monitored by nursing staff. ? Gait Training ([id number]): Direct one-on-one instruction and skilled instruction in: [x] movement sequencing [x] turning and movement with proper form [x] Provided instruction in gait pattern [x] Patient education regarding pacing and breathing techniques to maximize activity tolerance? GAIT? Assistive Device: None? Weight bearing: full Assist: Min assist with gait belt ? Distance:? 200 feet ? Deviation: Patient does not use AD at baseline per Dwain and son Richard, however today patient appears to furniture surf in hallway, reaching awkwardly across doorways, demonstrating several near-losses of balance. Kat much reduced compared to yesterday with FWW. Step height adequate, stride length reduced, and patient fatigues more quickly.? ASSESSMENT:? Patient may continue to improve, however, it is possible that patient would benefit from adopting the use of a FWW at baseline. The pros and cons were discussed with family today. PLAN: Continue to progress global strength and conditioning per plan of care, recommend encouraging FWW use multimedia instructional designer, will set patient up with a FWW for home through [facility] at discharge. TREATMENT CODE/TIME: [id number] Gait 29 minutes beginning at 10:45
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
--- NOTE | 2023-05-17 15:39 | PT.INTREAT ---
PT Notes Visit Reasons: CAPneumonia, UTI, Dehydration Date: 05/17/23 ?PRECAUTIONS: Fall, standard, activity as tolerated. ?SUBJECTIVE: Pt in recliner, pleasantly confused, pt spouse also present in room, pt agreed to participating with therapy ?OBJECTIVE: Seated in recliner. Stephenson catheter in place. Agreeable to therapy. ?PAIN: none reported. ?VITALS: monitored by nursing staff.?Therapeutic Exercises (74522j[1]): Direct one-on-one instruction in therapeutic exercises to develop strength, endurance, range of motion and flexibility. ? Exercises [x] ?Ambulation ?Assistive Device: [none]?Weight bearing: [WBAT] ?Assist: [CGA/Min A] ?Distance:? [150'] ?Deviation: pt leaning on wall and furniture surfing when close enough to reach. ? Provided skilled instruction in proper exercise performance Provided skilled manual cues to facilitate proper muscle recruitment and/or form: [x] ASSESSMENT:? Pt easily redirected requiring verbal and tactile cue for guidance with activity. pt spouse walked together with pt to provide reassurance while walking the hallway. ?PLAN: ?Continue global strengthening per plan of care until patient is medically cleared for discharge. ?TREATMENT CODE/TIME: [[id number]] 3:15 to 3:35pm
[2023-05-17 15:56] VITALS: BP 180/67; PULSE 53; RESP 18; TEMP 36; O2SAT 97
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
== END 2023-05-17 20:22 | disposition swing bed (61) | DRG 698 ==
LOC: ER 02:30 → MS 03:35 → ICU 11:00 → MS 05-15 11:38 → ICU 05-15 15:18 → MS 05-15 17:53
PROVIDERS: Family Medicine; Admitting Provider Internal Medicine; Emergency Provider Emergency Medicine; PCP Nurse Practitioner Family; Visit Provider Internal Medicine
DX: T83.511A Infection and inflammatory reaction due to indwelling urethral catheter, initial encounter (principal); A41.9 Sepsis, unspecified organism; J98.11 Atelectasis; Z16.12 Extended spectrum beta lactamase (ESBL) resistance; N39.0 Urinary tract infection, site not specified; E86.0 Dehydration; R53.1 Weakness; F01.50 Vascular dementia, unspecified severity, without behavioral disturbance, psychotic disturbance, mood disturbance, and anxiety; R33.9 Retention of urine, unspecified; I10 Essential (primary) hypertension; R41.0 Disorientation, unspecified; I49.3 Ventricular premature depolarization; E78.5 Hyperlipidemia, unspecified; F41.9 Anxiety disorder, unspecified; M54.50 Low back pain, unspecified; G30.9 Alzheimer's disease, unspecified; F02.C0 Dementia in other diseases classified elsewhere, severe, without behavioral disturbance, psychotic disturbance, mood disturbance, and anxiety; R32 Unspecified urinary incontinence; G47.30 Sleep apnea, unspecified; I44.0 Atrioventricular block, first degree; I08.3 Combined rheumatic disorders of mitral, aortic and tricuspid valves; B96.29 Other Escherichia coli [E. coli] as the cause of diseases classified elsewhere; I25.10 Atherosclerotic heart disease of native coronary artery without angina pectoris; N40.1 Benign prostatic hyperplasia with lower urinary tract symptoms; Z93.3 Colostomy status; Z66 Do not resuscitate; Z85.038 Personal history of other malignant neoplasm of large intestine; Z87.891 Personal history of nicotine dependence; Z79.82 Long term (current) use of aspirin
CPT/HCPCS: 36415; 76770; 80048; 80053; 84145; 85027; 87040; 87077; 87635; 87637; 93308; 96365; 96366; 96367; 96368; 97110; 97116; 97162; 99285; 71046; 81003; 81015; 83605; 83735; 84443; 84484; 85025; 85610; 85730; 86140; 87086; 87186; 93005; 93010; 93306; 99223; 99232; 99233; 99239; 99291; J0131; J0456; J1644; J1720

== ENCOUNTER 2023-05-17 17:40 | Inpatient (IN) | payer MEDICARE, SELFPAY ==
--- NOTE | 2023-05-17 15:25 | CM.SBPSYCH ---
Date of service: 05/17/23 Time of Service: 15:26 SB Psychosocial/Act. Assmt Hospital Admission Admission Date: 05/14/23 Admission From:: ED Diagnosis:: Uti and pneumonia Swing Bed Admission Swing Bed Admit Date:: 05/17/23 Swing Bed Level of Care: Level 1/SNF Social Supports PREVIOUS FUNCTIONAL STATUS/SOCIAL/FAMILY SUPPORTS:: Silvestre and his Dwain live in [facility] [place] during the summer months and spend the winter in [place], [place]. They have 4 adult children who reside around the country ([place], [place], [place], and [place]). 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 Silvestre has dementia and is dependent on others for all of his care. Prior to Admission Living Arrangements/Environment Prior to Admission:: see above Education Highest Grade Completed:: 16. 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 : Yes Benefits Financial: Social Security Episcopal Active Samaritan Member:: Yes Samaritan Affliation: [facility] Samaritan Will Samaritan Members or Supervisor Rolling Room Visit:: No Advance Directives for Healthcare Advance Directives for Healthcare: Advance Directives Interests Hobbies:: carpentry Table Games:: used to enjoy Sports:: likes watching ALYSSA playoffs - Patriots fan Music:: all kinds. 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 TV/Movies:: enjoyed lots of different programs Reading:: eclectic taste in books Present Functional Status Physical Abilities:: baseline walks about 2 blocks/day Cognitive:: has vascular dementia Communication:: good but limited by memory loss Sensory Systems: no glasses, dentures or hearing aides Admission Data Reason for Swing Bed Admission:: complete course of IV antibiotics Discharge Plan:: Grupo will be discharged home with new home health PT and nursing for IV hydration. He will transport via private vehicle with his Dwain and daughter Oksana. He will follow up with his local providers until he moves to [facility] in [place] where he will re-establish with his PCP there. Airplane Flight Attendant Supervisor: Luciana Leija Date Assessment was completed:: 05/17/23
--- NOTE | 2023-05-17 15:28 | CMSCP_ITS ---
Date of service: 05/17/23 Time of Service: 15:28 Swingbed Plan of Care Activites/Discharge Plan of care: SWING BED PROGRAM ACTIVITIES/DISCHARGE PLAN OF CARE ACTIVITIES PLAN Date:05/17/23 Identified Need:individualized activity plan Intervention/Plan:Grupo enjoys spending time visiting with his family. His and daughter spend most of the day with him and assist with his care and meals. Grupo also watches some tv but his interest and attention is limited by his dementia. Initials [facility] [place] PLAN Date:05/17/23 Identified Need:safe discharge plan Intervention/Plan:Grupo will be discharged home with new home health services for nursing. He will have home infusions for hydration three times a week. CM has been working with [facility] and [facility] to coordinate efforts. He will also receive home health PT for strengthening and balance. Grupo will transport via private vehicle with his Dwain and daughter Johanna
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
[2023-05-17] MEDS: Memantine 5 MG TAB 10 MG PO (21:22)
[2023-05-17] MEDS: Donepezil 5 MG TAB 10 MG PO (21:22)
[2023-05-17] MEDS: Heparin 5,000 UNITS/ML VIAL 5000 UNITS SC (21:23)
[2023-05-17] MEDS: Finasteride 5 MG TAB PO (21:23)
[2023-05-17] MEDS: Benazepril 10 MG TAB 20 MG PO (21:36)
[2023-05-18] MEDS: MEROPENEM 1 GM in Normal Saline 100 ML IVPB ×2 (02:00→13:54)
[2023-05-18 05:39] VITALS: BP 159/80; PULSE 49; RESP 16; TEMP 36; O2SAT 94
[2023-05-18] MEDS: Heparin 5,000 UNITS/ML VIAL 5000 UNITS SC ×3 (05:44→20:32)
[2023-05-18 07:20] VITALS: BP 182/96; PULSE 49; RESP 16; TEMP 36; O2SAT 95
[2023-05-18] MEDS: Aspirin E.C. 81 MG TABEC PO (08:51)
[2023-05-18] MEDS: Zinc Sulfate 220 MG TAB PO (08:51)
[2023-05-18] MEDS: Magnesium Oxide 400 MG TAB PO (08:52)
[2023-05-18] MEDS: Memantine 5 MG TAB 10 MG PO ×2 (08:53→20:31)
[2023-05-18] MEDS: Ascorbic Acid 500 MG TAB PO (08:53)
[2023-05-18] MEDS: Tamsulosin 0.4 MG CAPCR PO (08:54)
[2023-05-18] MEDS: Naltrexone 50 MG TAB 25 MG PO (08:54)
[2023-05-18] MEDS: Sertraline 25 MG TAB 50 MG PO (08:55)
[2023-05-18] MEDS: Benazepril 10 MG TAB 20 MG PO ×2 (09:04→20:32)
[2023-05-18 11:30] VITALS: BP 145/76; PULSE 38
[2023-05-18] MEDS: amLODIPine 5 MG TAB PO (11:30)
[2023-05-18 13:43] VITALS: PULSE 64
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
[2023-05-18] MEDS: Donepezil 5 MG TAB 10 MG PO (20:32)
[2023-05-18] MEDS: Finasteride 5 MG TAB PO (20:32)
[2023-05-18 23:18] VITALS: BP 148/83; PULSE 60; RESP 17; TEMP 36.7; O2SAT 95
[2023-05-19] MEDS: MEROPENEM 1 GM in Normal Saline 100 ML IVPB ×2 (01:36→14:10)
[2023-05-19] MEDS: Heparin 5,000 UNITS/ML VIAL 5000 UNITS SC ×3 (06:39→22:24)
[2023-05-19 07:01] LABS: HCT 32.8 % (40.0-50.0); HGB 10.6 g/dL (13.5-17.5); MCH 30.6 pg (27.0-33.0); MCHC 32.3 % (32.0-36.0); MCV 95 fL (80-95); MPV 9.8 fL (8.0-11.0); Platelet Count 326 10^3/uL (130-400); RBC 3.46 10^6/uL (4.36-5.78); RDW 12.8 % (11.8-14.1); WBC 8.38 10^3/uL (4.4-10.8)
[2023-05-19 08:30] VITALS: BP 151/80; PULSE 58; RESP 19; TEMP 36.6; O2SAT 94
[2023-05-19] MEDS: Zinc Sulfate 220 MG TAB PO (08:30)
[2023-05-19] MEDS: Aspirin E.C. 81 MG TABEC PO (08:30)
[2023-05-19] MEDS: Sertraline 25 MG TAB 50 MG PO (08:30)
[2023-05-19] MEDS: Naltrexone 50 MG TAB 25 MG PO (08:31)
[2023-05-19] MEDS: Magnesium Oxide 400 MG TAB PO (08:31)
[2023-05-19] MEDS: Memantine 5 MG TAB 10 MG PO ×2 (08:32→19:31)
[2023-05-19] MEDS: Tamsulosin 0.4 MG CAPCR PO (08:32)
[2023-05-19] MEDS: amLODIPine 5 MG TAB PO (08:33)
[2023-05-19] MEDS: Ascorbic Acid 500 MG TAB PO (08:33)
[2023-05-19] MEDS: Benazepril 10 MG TAB 20 MG PO ×2 (08:36→19:33)
[2023-05-19] MEDS: Normal Saline Flush 10 ML SYR IVP (14:12)
[2023-05-19 16:08] VITALS: BP 119/66; PULSE 54; RESP 19; TEMP 36.6; O2SAT 94
--- NOTE | 2023-05-19 17:01 | PT.INTREAT ---
Date of service: 05/19/23 Time of Service: 11:06 PT Notes Visit Reasons: Urosepsis with ESBL E.Coli Inpatient Physical Therapy Treatment Note [facility] Date: 05/19/23 PRECAUTIONS: Fall, standard, activity as tolerated. SUBJECTIVE: Patient states he's feeling pretty good. Gingerly poking swollen spot just proximal to left wrist. OBJECTIVE: Patient supine in bed, present. Both are agreeable to therapy. AFTERNOON Patient sitting in recliner, present, agreeable to therapy.? PAIN: indicates pain just proximal to left wrist. AFTERNOON states he is having back pain. VITALS: monitored by nursing staff. Gait Training ([id number]): Direct one-on-one instruction and skilled instruction in: [x] employing an assistive device [x] movement sequencing [x] turning and movement with proper form [x] Provided verbal cues for equipment management and technique [x] Provided instruction in gait pattern [x] Patient education regarding pacing to maximize activity? GAIT? Assistive Device: FWW ? Weight bearing: full Assist: CGA ? Distance:? 300 feet AFTERNOON 300 feet ? Deviation: decreased step height, decreased step length, kyphotic posture only minimally corrected with repeated verbal and tactile cues. able to get higher / longer steps from patient with marching cues, but only for 6-10 steps at a time. AFTERNOON Pace markedly decreased from this morning.? ASSESSMENT:? Patient easier to motivate today, quicker to respond to tactile cues for task initiation. PLAN: Continue global strengthening per plan of care until patient is medically cleared for discharge. TREATMENT CODE/TIME: 19611 Gait 31 minutes beginning at 11:06 AFTERNOON 37810 Gait 28 minutes beginning at 14:44
[2023-05-19 19:34] VITALS: BP 126/65; PULSE 57; RESP 14; TEMP 36.9; O2SAT 94
[2023-05-19] MEDS: Donepezil 5 MG TAB 10 MG PO (22:24)
[2023-05-19] MEDS: Finasteride 5 MG TAB PO (22:24)
[2023-05-19 22:36] VITALS: BP 135/73; PULSE 54; RESP 16; TEMP 36.9; O2SAT 92
[2023-05-20 02:43] VITALS: BP 156/79; PULSE 51; RESP 14; TEMP 35.6; O2SAT 93
[2023-05-20] MEDS: MEROPENEM 1 GM in Normal Saline 100 ML IVPB ×2 (02:44→14:06)
[2023-05-20] MEDS: Heparin 5,000 UNITS/ML VIAL 5000 UNITS SC ×3 (06:25→21:25)
[2023-05-20 09:15] VITALS: BP 164/89; PULSE 53; RESP 19; TEMP 36.7; O2SAT 93
[2023-05-20] MEDS: Benazepril 10 MG TAB 20 MG PO ×2 (09:17→21:23)
[2023-05-20] MEDS: Zinc Sulfate 220 MG TAB PO (09:17)
[2023-05-20] MEDS: Naltrexone 50 MG TAB 25 MG PO (09:19)
[2023-05-20] MEDS: Tamsulosin 0.4 MG CAPCR PO (09:19)
[2023-05-20] MEDS: Ascorbic Acid 500 MG TAB PO (09:21)
[2023-05-20] MEDS: amLODIPine 5 MG TAB PO (09:21)
[2023-05-20] MEDS: Aspirin E.C. 81 MG TABEC PO (09:21)
[2023-05-20] MEDS: Sertraline 25 MG TAB 50 MG PO (09:22)
[2023-05-20] MEDS: Magnesium Oxide 400 MG TAB PO (09:22)
[2023-05-20] MEDS: Memantine 5 MG TAB 10 MG PO ×2 (09:22→21:24)
--- NOTE | 2023-05-20 12:04 | PT.INTREAT ---
Date of service: 05/20/23 Time of Service: 11:03 PT Notes Visit Reasons: Urosepsis with ESBL E.Coli Inpatient Physical Therapy Treatment Note [facility] Date: 05/20/23 PRECAUTIONS: Fall, standard, activity as tolerated, contact precautions. SUBJECTIVE: Patient, Anjelica, and Daughter (Jerry) present in room. Patient much slower to respond today despite Anjelica's encouragement. Patient keeps saying wait a minute, wait a minute when encouraged to move. and Daughter express serious concerns about patient's ability to go home, given the decline in his ability to ambulate. OBJECTIVE: Patient long sitting in hospital bed. Agreeable to therapy. ? PAIN: Patient spends a lot of time gingerly poking at a swollen bump on his right arm and grimacing, indicating pain. Also spends increased time pausing ambulation to curl forward, seeming to stretch his back. 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 VITALS: monitored by nursing staff. ??? Therapeutic Activities ([id number]): Direct one-on-one instruction in dynamic activities to improve functional performance. ? BED MOBILITY/TRANSFERS? Rolling L/R: if patient is intrinsically motivated, independent. Otherwise, min to mod assist, tactile cues. Supine-sit: min to mod assist with verbal and tactile cues. Patient appears to struggle with movement initiation. ? Sit-supine: CGA to min assist. ? Sit-stand: CGA once intrinsic motivation is achieved. Otherwise, mod to max assist and patient becomes agitated about being grabbed. ?Stand-sit: CGA ? Bed-Chair: Depending on motivation, CGA-mod assist. ? Chair-bed: Depending on motivation, CGA-mod assist. Provided skilled cues and instruction on performance and technique throughout. Education provided to family regarding intrinsic vs extrinsic motivation and the involvement with motor planning in the setting of dementia (ie telling a patient to stand up is a different motor plan from Let's go get coffee.) Gait Training ([id number]): Direct one-on-one instruction and skilled instruction of patient and family in: [x] employing an assistive device [x] movement sequencing especially keeping both hands on the walker, keeping walker close enough to body. [x] turning and movement with proper form - Patient tends to extend FWW too far forward and extend to the outside when cornering, causing patient to have center of mass outside base of support. [x] Provided verbal and tactile cues for equipment management and technique [x] Provided instruction in gait pattern? GAIT? Assistive Device: FWW ? Weight bearing: full Assist: CGA to mod assist for balance, steering. Max verbal and visual cues for continued patient engagement and motivation. ?Distance:? 100 feet, seated rest x2 ? Deviation: festinating gait pattern noted with patient extending walker too far in front, shuffling and extremely short step length. Patient repeatedly attempted to grab railing in hallway and walk with one hand on walker and one on railing. ? ASSESSMENT:? Patient and live alone in their home. Family is very supportive but not local. states that patient must be able to ambulate safely without physical assist and with min verbal cues in order for the 2 of them to be safe together. is not able to physically assist patient. At this time, SNF vs LTC should be considered due to patient's requirement of max verbal and tactile cues and intermittent physical assist for safe ambulation. PLAN: Continue treatment per plan of care, prioritizing activities that will encourage safe and independent ambulation for patient and . TREATMENT CODE/TIME: 69706 gait training 30 minutes, 38693 Ther Act 28 minutes beginning at 11:03
[2023-05-20] MEDS: Acetaminophen 325 MG TAB PO (12:10)
[2023-05-20] MEDS: Normal Saline Flush 10 ML SYR IVP (13:03)
[2023-05-20] MEDS: Lactated Ringers 1,000 ML 100 ML IV (13:04)
[2023-05-20 15:08] VITALS: BP 124/65; PULSE 59; RESP 15; TEMP 36.4; O2SAT 92
[2023-05-20] MEDS: Finasteride 5 MG TAB PO (21:23)
[2023-05-20] MEDS: Donepezil 5 MG TAB 10 MG PO (21:25)
[2023-05-20 22:05] VITALS: BP 119/71; PULSE 59; RESP 16; TEMP 36.3; O2SAT 93
[2023-05-21] MEDS: MEROPENEM 1 GM in Normal Saline 100 ML IVPB ×2 (02:30→14:19)
[2023-05-21] MEDS: Heparin 5,000 UNITS/ML VIAL 5000 UNITS SC ×3 (06:23→21:50)
[2023-05-21 06:56] VITALS: BP 160/70; PULSE 53; RESP 18; TEMP 36; O2SAT 95
[2023-05-21 07:04] LABS: HCT 33.3 % (40.0-50.0); HGB 10.9 g/dL (13.5-17.5); MCH 31.2 pg (27.0-33.0); MCHC 32.7 % (32.0-36.0); MCV 95 fL (80-95); MPV 9.9 fL (8.0-11.0); Platelet Count 334 10^3/uL (130-400); RBC 3.49 10^6/uL (4.36-5.78); RDW 13.2 % (11.8-14.1); RDW-SD 45.5 fL; WBC 7.22 10^3/uL (4.4-10.8)
[2023-05-21] MEDS: Tamsulosin 0.4 MG CAPCR PO (08:44)
[2023-05-21] MEDS: Zinc Sulfate 220 MG TAB PO (08:44)
[2023-05-21] MEDS: Naltrexone 50 MG TAB 25 MG PO (08:44)
[2023-05-21] MEDS: Sertraline 25 MG TAB 50 MG PO (08:45)
[2023-05-21] MEDS: amLODIPine 5 MG TAB PO (08:45)
[2023-05-21] MEDS: Ascorbic Acid 500 MG TAB PO (08:45)
[2023-05-21] MEDS: Aspirin E.C. 81 MG TABEC PO (08:45)
[2023-05-21] MEDS: Magnesium Oxide 400 MG TAB PO (08:45)
[2023-05-21] MEDS: Benazepril 10 MG TAB 20 MG PO ×2 (08:45→21:46)
[2023-05-21] MEDS: Memantine 5 MG TAB 10 MG PO ×2 (08:46→21:47)
[2023-05-21] MEDS: Lactated Ringers 1,000 ML 100 ML IV (08:47)
--- NOTE | 2023-05-21 11:53 | PT.INTREAT ---
Date of service: 05/21/23 Time of Service: 11:24 PT Notes Visit Reasons: Urosepsis with ESBL E.Coli Inpatient Physical Therapy Treatment Note [facility] Date: 05/21/23 PRECAUTIONS: Fall, standard, contact, activity as tolerated. SUBJECTIVE: Anjelica and daughter Shilpa present, both report that patient is much clearer cognitively than he has been in months. Patient speaking in complete sentences. OBJECTIVE: Patient sitting up in recliner with feet down, agreeable to therapy. ? PAIN: Pauses often to stretch back, grimaces occasionally. VITALS: monitored by nursing. ? Gait Training ([id number]): Direct one-on-one instruction and skilled instruction (primarily to patient's family, as patient's cognitive status reduces ability for new learning) in: [x] employing an assistive device [x] movement sequencing [x] turning and movement with proper form [x] Provided verbal cues for equipment management and technique [x] Provided instruction in gait pattern [x] Patient education regarding pacing and breathing techniques to maximize activity tolerance? GAIT? Assistive Device: FWW ? Weight bearing: full Assist: CGA ? Distance:? 300 feet ? Deviation: Patient pushes walker too far away, kyphotic posture. Increased step height, length, and evita today over yesterday. Increased regularity of movement, fewer pauses, less distracted. ? ASSESSMENT:? Patient is much more able to initiate movement today - still takes several minutes of persuading to stand initially, however patient requires less cueing throughout session overall to remain engaged. PLAN: Continue global strengthening, patient and family education per plan of care until patient is medically able to discharge. TREATMENT CODE/TIME: 78851 Gait 28 minutes beginning at 11:24
--- NOTE | 2023-05-21 13:32 | PHA.REVIEW2 ---
Pharmacy Admission Review Admission Clinical Review Admission Pharmacy Review: (Updated 05/18/23 @ 15:30 by Dwain Moreno MD) Indwelling Stephenson catheter present (Acute) Mixed Alzheimer's and vascular dementia (Acute) UTI (urinary tract infection) due to urinary indwelling Stephenson catheter (Acute) Acute UTI (Acute) No Known Allergies Allergy (Unverified 05/14/23 00:54) Resuscitation Status DNR/DNI Height 5 ft 10 in Weight 68.4 kg Pharmacy Admission Review Anticoagulation Anticoagulation: Hgb 10.9 g/dL (13.5-17.5) L 05/21/23 05:50 Hct 33.3 % (40.0-50.0) L 05/21/23 05:50 Plt Count 334 10^3/uL (130-400) 05/21/23 05:50 Pharmacy Antibiotic Review Relevant Labs: Watch SCr for Meropenem dosing, repeat blood cultures no growth Pharmacy Antibiotic Activity: Reviewed, no change (Meropenem continues x 10 days of therapy for Urosepsis growing ESBL, end date: 06/24/23 after 2am dose)
[2023-05-21 19:40] VITALS: BP 131/68; PULSE 72; RESP 18; TEMP 36.3; O2SAT 92
[2023-05-21] MEDS: Finasteride 5 MG TAB PO (21:47)
[2023-05-21] MEDS: Donepezil 5 MG TAB 10 MG PO (21:47)
[2023-05-21] MEDS: Normal Saline Flush 10 ML SYR IVP (21:48)
[2023-05-22] MEDS: MEROPENEM 1 GM in Normal Saline 100 ML IVPB ×2 (02:19→13:39)
[2023-05-22] MEDS: Heparin 5,000 UNITS/ML VIAL 5000 UNITS SC ×3 (06:14→21:11)
[2023-05-22] MEDS: Naltrexone 50 MG TAB 25 MG PO (09:12)
[2023-05-22] MEDS: Zinc Sulfate 220 MG TAB PO (09:12)
[2023-05-22] MEDS: Tamsulosin 0.4 MG CAPCR PO (09:12)
[2023-05-22] MEDS: Magnesium Oxide 400 MG TAB PO (09:13)
[2023-05-22] MEDS: amLODIPine 5 MG TAB PO (09:13)
[2023-05-22] MEDS: Aspirin E.C. 81 MG TABEC PO (09:13)
[2023-05-22] MEDS: Sertraline 25 MG TAB 50 MG PO (09:13)
[2023-05-22] MEDS: Benazepril 10 MG TAB 20 MG PO ×2 (09:13→21:11)
[2023-05-22] MEDS: Ascorbic Acid 500 MG TAB PO (09:13)
[2023-05-22] MEDS: Memantine 5 MG TAB 10 MG PO ×2 (09:14→21:10)
[2023-05-22] MEDS: Lactated Ringers 1,000 ML 100 ML IV (09:14)
[2023-05-22 15:00] VITALS: BP 106/64; PULSE 55; TEMP 36.8; O2SAT 95
[2023-05-22 15:27] VITALS: BP 106/64; PULSE 55; TEMP 36.8; O2SAT 95
--- NOTE | 2023-05-22 15:28 | PT.INTREAT ---
Date of service: 05/22/23 PT Notes Visit Reasons: Urosepsis with ESBL E.Coli Inpatient Physical Therapy Treatment Note [facility] Date: 05/22/23 PRECAUTIONS: Fall, standard, CONTACT, activity as tolerated. SUBJECTIVE: Patient appears more alert, family reports he swung his legs out of bed this morning and stood right up with very minimal prompting. OBJECTIVE: Sitting up in recliner, picking at IV line. This therapist supplied a robe with the IV line running up the sleeve and out at the back of the neck to disguise IV access. Agreeable to therapy.? PAIN: Patient grimaces and stretches indicating back pain several times during treatment session. VITALS: monitored by nursing staff. Gait Training ([id number]): Direct one-on-one instruction and skilled instruction in: [x] employing an assistive device [x] movement sequencing [x] turning and movement with proper form [x] Provided verbal cues for equipment management and technique [x] Provided instruction in gait pattern GAIT? Assistive Device: FWW ? Weight bearing: full Assist: SBA with continuous verbal cues and encouragement ? Distance:? 300 feet ? Deviation: posture stooped more than this a.m. ? STAIRS: ascends 2x six inch stairs, descends 3x four inch stairs with bilateral railings, CGA. ? Therapeutic Exercises ([id number]): Direct one-on-one instruction in therapeutic exercises to develop strength, endurance, range of motion and flexibility. ?Ambulation ? Assistive Device: FWW ? Weight bearing: full Assist: SBA, help managing IV pole ? Distance:? 300 feet ? Deviation: Patient's evita is much improved today, although it is somewhat unpredictable. Patient will cover 10 yards in 6 seconds, pause to stretch, take 20 seconds to cover the next 10 yards. Very unpredictable. Patient's balance is better today. Posture is more lateral leaning than this therapist has noticed before, shoulders drifted left compared to hips. Patient's step height is improved, and patient tends to maintain a safer distance from walker, pushing it less far out in front than in previous days. ? Provided skilled instruction in proper exercise performance Provided skilled manual cues to facilitate proper muscle recruitment and/or form. ASSESSMENT:? Patient's cognition and ability to initiate movement have improved dramatically over the last 2 days, since the initiation of IV hydration. Patient's stamina also appears to be improving. PLAN: Continue global strengthening per plan of care until patient is medically ready to discharge. TREATMENT CODE/TIME: AM 21 minutes beginning at 14:06 PM 23 minutes beginning at 16:00
[2023-05-22] MEDS: Donepezil 5 MG TAB 10 MG PO (21:10)
[2023-05-22] MEDS: Finasteride 5 MG TAB PO (21:11)
[2023-05-23] MEDS: MEROPENEM 1 GM in Normal Saline 100 ML IVPB ×2 (02:10→13:20)
[2023-05-23] MEDS: Heparin 5,000 UNITS/ML VIAL 5000 UNITS SC ×3 (05:34→20:19)
[2023-05-23 06:42] LABS: HCT 33.9 % (40.0-50.0); HGB 10.8 g/dL (13.5-17.5); MCH 30.9 pg (27.0-33.0); MCHC 31.9 % (32.0-36.0); MCV 97 fL (80-95); MPV 9.4 fL (8.0-11.0); Platelet Count 345 10^3/uL (130-400); RDW 13.6 % (11.8-14.1); RDW-SD 47.7 fL
[2023-05-23 07:06] VITALS: BP 152/70; PULSE 52; RESP 16; TEMP 36.4; O2SAT 95
[2023-05-23] MEDS: Naltrexone 50 MG TAB 25 MG PO (08:30)
[2023-05-23] MEDS: Zinc Sulfate 220 MG TAB PO (08:30)
[2023-05-23] MEDS: Aspirin E.C. 81 MG TABEC PO (08:30)
[2023-05-23] MEDS: Benazepril 10 MG TAB 20 MG PO ×2 (08:31→20:19)
[2023-05-23] MEDS: Tamsulosin 0.4 MG CAPCR PO (08:31)
[2023-05-23] MEDS: Memantine 5 MG TAB 10 MG PO ×2 (08:31→20:18)
[2023-05-23] MEDS: Magnesium Oxide 400 MG TAB PO (08:31)
[2023-05-23] MEDS: Sertraline 25 MG TAB 50 MG PO (08:31)
[2023-05-23] MEDS: Ascorbic Acid 500 MG TAB PO (08:31)
[2023-05-23] MEDS: amLODIPine 5 MG TAB PO (08:32)
[2023-05-23] MEDS: Lactated Ringers 1,000 ML 100 ML IV (09:00)
[2023-05-23] MEDS: Acetaminophen 325 MG TAB PO ×2 (13:19→20:17)
[2023-05-23 15:23] VITALS: BP 85/50
[2023-05-23 15:25] VITALS: BP 105/66; PULSE 59; RESP 20; TEMP 37; O2SAT 92
--- NOTE | 2023-05-23 15:25 | NUR.NOTE ---
PT reported low BP to nursing. Family is also concerned bc pt has been more drowsy than normal. Manual BP checked to confirm, and it was 85/50. intravenous therapy nurse notified. MD came to evaluate pt and retake BP. Once pt was more alert, BP was 106/67. MD ordered a urine sample to assess for UTI. Will continue to monitor. Nursing Note:
[2023-05-23 18:36] LABS: Bilirubin Negative (Negative); Blood Small (Negative); Clarity Clear (Clear); Glucose Negative (Negative); Ketones Trace mg/dL (Negative); Leukocyte Esterase Negative (Negative); Nitrite Negative (Negative); Urobilinogen 0.2 mg/dL (Up to 0.2)
[2023-05-23 18:51] LABS: Bacteria Negative HPF (Negative); Crystals Negative HPF (Negative); Epithelial Cells Negative HPF (Negative); Mucus Moderate (Negative)
[2023-05-23 18:52] LABS: C & S Indicated? No
[2023-05-23] MEDS: Donepezil 5 MG TAB 10 MG PO (20:18)
[2023-05-23] MEDS: Finasteride 5 MG TAB PO (20:19)
[2023-05-23 22:54] VITALS: RESP 16
[2023-05-23 23:29] VITALS: BP 135/78; PULSE 60; RESP 16; TEMP 36.4; O2SAT 92
[2023-05-24] MEDS: MEROPENEM 1 GM in Normal Saline 100 ML IVPB (02:10)
[2023-05-24] MEDS: Heparin 5,000 UNITS/ML VIAL 5000 UNITS SC ×3 (06:15→19:56)
[2023-05-24 09:03] LABS: Abs Immature Grans 0.08 10^3/uL (0.0-0.06); Absolute Basophil Count 0.04 10^3/uL (0.0-0.2); Absolute Eosinophil Count 0.34 10^3/uL (0.0-0.7); Absolute Lymphocyte Count 0.96 10^3/uL (1.2-3.4); Absolute Monocyte Count 0.59 10^3/uL (0.1-0.8); Absolute Neutrophil Count 5.18 10^3/uL (1.2-6.7); Basophils % 0.6; Eosinophils % 4.7; HCT 35.1 % (40.0-50.0); HGB 11.4 g/dL (13.5-17.5); Immature Grans % 1.1; Lymphocytes % 13.4; MCH 31.3 pg (27.0-33.0); MCHC 32.5 % (32.0-36.0); MCV 96 fL (80-95); MPV 9.5 fL (8.0-11.0); Monocytes % 8.2; Platelet Count 343 10^3/uL (130-400); RBC 3.64 10^6/uL (4.36-5.78); RDW 13.6 % (11.8-14.1); RDW-SD 48.1 fL; WBC 7.19 10^3/uL (4.4-10.8)
[2023-05-24 09:15] LABS: Anion Gap 3.3 mmol/L (3-11); BUN 17 mg/dL (7-18); CO2 32.7 mmol/L (21.0-32.0); CREATININE 0.8 mg/dL (0.70-1.30); Chloride 106 mmol/L (98-107); Estimated GFR 85.65 (mL/min/1.73m2); Glucose 104 mg/dL (74-106); Sodium 142 mmol/L (136-145)
[2023-05-24 09:16] LABS: Magnesium 2.3 mg/dL (1.8-2.4)
[2023-05-24] MEDS: Ascorbic Acid 500 MG TAB PO (09:35)
[2023-05-24] MEDS: Benazepril 10 MG TAB 20 MG PO ×2 (09:35→19:55)
[2023-05-24] MEDS: Sertraline 25 MG TAB 50 MG PO (09:36)
[2023-05-24] MEDS: Tamsulosin 0.4 MG CAPCR PO (09:37)
[2023-05-24] MEDS: Zinc Sulfate 220 MG TAB PO (09:37)
[2023-05-24] MEDS: Magnesium Oxide 400 MG TAB PO (09:37)
[2023-05-24] MEDS: Naltrexone 50 MG TAB 25 MG PO (09:38)
[2023-05-24] MEDS: amLODIPine 5 MG TAB PO (09:39)
[2023-05-24] MEDS: Lactated Ringers 1,000 ML 100 ML IV (09:40)
[2023-05-24] MEDS: Memantine 5 MG TAB 10 MG PO ×2 (09:40→19:55)
[2023-05-24] MEDS: Normal Saline Flush 10 ML SYR IVP (09:41)
[2023-05-24] MEDS: Aspirin E.C. 81 MG TABEC PO (09:41)
--- NOTE | 2023-05-24 16:12 | PT.INTREAT ---
PT Notes Visit Reasons: Urosepsis with ESBL E.Coli Date: 05/24/23 PRECAUTIONS: Fall, standard, CONTACT, activity as tolerated. SUBJECTIVE: Pt pleasantly confused, family present and was able to assist with redirecting pt to participate with therapy. pt in recliner with perdomo catheter, IV line on the right arm OBJECTIVE: ? PAIN: pt did not verbalize pain but it is obvious pt is in pain on his back, pt hesitating to stand up as a result. VITALS: monitored by nursing staff. Gait Training ([id number]): Direct one-on-one instruction and skilled instruction in: [x] employing an assistive device [x] movement sequencing [x] turning and movement with proper form [x] Provided verbal cues for equipment management and technique [x] Provided instruction in gait pattern GAIT?Assistive Device: FWW/hand held asssist ?Weight bearing: full ?Assist: SBA max verbal cue for redirection and continued engagement?Distance:? 300 feet?Deviation: Stoop forward posture, slow evita, low step height and short step length. ?STAIRS: ? Facility stairs doing 12 step up and down, alternating between step through and step to gait pattern, 1UE support and 1handrail, CGA Standing rest break at top of stair landing before going back down.? ASSESSMENT:? Pt very confused, too a long time to get pt to stand from recliner with family's help with redirection, pt taking every oppurtunity to sit down when ever a chair comes within reaching range. pt could get aggressive when prompted by pt's or daughter to stand up from hallway chair. pt stayed in recliner post gait training and stair negotiation training. ?PLAN: Continue global strengthening per plan of care until patient is medically ready to discharge. ?TREATMENT CODE/TIME: PM 31 minutes [id number] x2 (1:45 to 2:16pm)
--- NOTE | 2023-05-24 17:55 | CMPROGNOTE_ITS ---
Date of service: 05/24/23 Time of Service: 17:55 Care Management Progress Note Progress Note Text Progress Note Text: S/O:Silvestre was sitting up in a chair when CM met with him. He continues to feel well. He will likely be discharged home tomorrow or Monday and have new home health services for IV hydration 3 times weekly. It has yet to be determined which company will supply the services; referrals have beenn sent to both [facility] and [facility]. A: Silvestre is an 88 year old man admitted on 05/14/23 with CAP, UTI and dementia P:Silvestre has beenl transition to SB-1 to complete his course of IVAB before going home. He will be discharged home when medically cleared by provider. He will have new home health services for home infusions for hydration three times a week. [facility] has been working with home infusion companies as well as [facility] to coordinate efforts. [facility] will not be able to initiate services until Monday. Mentally Grupo is much clearer and more awake since receiving IV hydration daily. PT has completed an evaluation and have determined that he is safe to go home with no other services.? ? CM will continue to support patient, his family and any discharge planning needs.
[2023-05-24] MEDS: Finasteride 5 MG TAB PO (19:55)
[2023-05-24] MEDS: Acetaminophen 325 MG TAB PO (19:55)
[2023-05-24] MEDS: Donepezil 5 MG TAB 10 MG PO (19:55)
--- NOTE | 2023-05-24 20:05 | PGE_ITS ---
Date of Service Date of service: 05/24/23 Time of Service: 20:05 Assessment and Plan Assessment and plan (1) E coli bacteremia: Status: Resolved Assessment and plan: Due to a UTI, present on admission. Finished meropenem. (2) Acute UTI: Status: Resolved Assessment and plan: As above, in setting of an indwelling perdomo catheter. Had negative imaging (US renal). Perdomo in place. Would need a change prior to discharge. 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 Usually changed monthly. Would change prior to discharge. (5) Vascular dementia: Status: Chronic Assessment and plan: Impeding his hydration at home. Plan is for discharge home with a midline and IVF through home health on [facility]. (6) HTN (hypertension): Status: Chronic Assessment and plan: continue amlodipine and benazepril. Tolerating well (7) Discharge planning issues: Status: Acute Assessment and plan: DNR/DNI Anticipate discharge home as soon as home health IVF are set up. Subjective Subjective Interval history since last seen: Mr Hernandez states that he is feeling a little dizzy. It is not clear to me that he understands what that means. Denies CP, SOB, states he is nauseated, but does not feel like vomiting. S/p RUE midline placement today. Exam Narrative Exam Narrative: General: Pleasant elderly male who is sitting up in a chair, A&Ox1 HEENT: EOMI, MMM Heart: RRR, no m/r/g Lungs: CTAB Abdomen: soft, nontender, nondistended Extremities: trace edema at B ankles, RUE w/ midline in is wrapped in maurice bandages. Objective Last Vital Signs Temp 36.4 C 05/23/23 23:29 Pulse 60 05/23/23 23:29 Resp 16 05/23/23 23:29 BP 135/78 05/23/23 23:29 Pulse Ox 92 05/23/23 23:29 Laboratory Results - last 24 hr 05/24/23 05/24/23 05/24/23 08:35 08:35 08:35 WBC 7.19 RBC 3.64 L Hgb 11.4 L Hct 35.1 L MCV 96 H MCH 31.3 MCHC 32.5 RDW 13.6 Plt Count 343 MPV 9.5 Immature Gran % 1.1 Neutrophils % 72.0 Lymphocytes % 13.4 Monocytes % 8.2 Eosinophils % 4.7 Basophils % 0.6 Nucleated RBC % 0.0 Absolute Neutrophils 5.18 Absolute Lymphocytes 0.96 L Absolute Monocytes 0.59 Absolute Eosinophils 0.34 Absolute Basophils 0.04 Sodium 142 Potassium 4.0 Chloride 106 Carbon Dioxide 32.7 H Anion Gap 3.3 BUN 17 Creatinine 0.8 Est GFR (CKD-EPI 2020) 85.65 Glucose 104 Calcium 9.0 Magnesium 2.3 Time Spent with Patient Time Spent with Patient: 25-34 minutes Time was spent: preparing to see the patient(eg.review tests), obtaining and/or reviewing separately otained hiistory, ordering medications,tests, procedures, referring, communicating with other health lawn care professional, indepentently interpreting results, counseling the patient and care coordination
[2023-05-25] MEDS: Heparin 5,000 UNITS/ML VIAL 5000 UNITS SC (05:12)
[2023-05-25 08:37] VITALS: BP 136/82; PULSE 49; RESP 18; TEMP 35.5; O2SAT 93
[2023-05-25] MEDS: Benazepril 10 MG TAB 20 MG PO (09:46)
[2023-05-25] MEDS: Memantine 5 MG TAB 10 MG PO (09:46)
[2023-05-25] MEDS: Naltrexone 50 MG TAB 25 MG PO (09:47)
[2023-05-25] MEDS: Zinc Sulfate 220 MG TAB PO (09:47)
[2023-05-25] MEDS: Tamsulosin 0.4 MG CAPCR PO (09:47)
[2023-05-25] MEDS: Sertraline 25 MG TAB 50 MG PO (09:48)
[2023-05-25] MEDS: Aspirin E.C. 81 MG TABEC PO (09:49)
[2023-05-25] MEDS: Magnesium Oxide 400 MG TAB PO (09:49)
[2023-05-25] MEDS: amLODIPine 5 MG TAB PO (09:49)
[2023-05-25] MEDS: Ascorbic Acid 500 MG TAB PO (09:49)
[2023-05-25] MEDS: Lactated Ringers 1,000 ML 100 ML IV (09:52)
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
--- NOTE | 2023-05-25 15:09 | PDOC.HHF2F ---
Home Health Referral Home Health Orders Clinical synopsis of why skilled professionals are needed: Mr Hernandez is an 88 year old male with PMHx of indwelling perdomo catheter for urinary retention, as well as h/o HTN, hyperlipidemia, Mixed vascular and Alzheimer's dementia, who was a patient on [facility] hospitalist service under swing bed level 1 while finishing IV antibiotics for his ESBL E. Coli UTI and bacteremia. He completed the antibiotic therapy on 05/24/23. He was noted to have a decreased PO intake here at our facility and his mental status improved with rehydration. The patient is being discharged home with home health nursing orders to infuse 1 L of LR @100 cc/hr three times weekly (MWF). He had a midline placed on 05/23/23 to his RUE. His perdomo catheter is getting exchanged prior to his discharge today. Medical diagnosis necessitation home health referral: Dementia, dehydration Registered Nurse: Check all that apply Instruct on, and maintenance of, urinary device: Ordered Assess for exacerbation of medical condition, instruct patient/caregivers on signs and symptoms to report for early detection: Ordered IV therapy, consisting of: LR@ 100 cc/hr x 1 L MWF via midline; Routine midline care Physical Therapist: Check all that apply Increase strength & endurance for safe mobility at home: Ordered To design/establish home maintenance program: Ordered Home safety evaluation and teaching/gait training including stair management (if applicable): Ordered Occupational Therapist: Evaluate and treat for patient unable to perform ADL/IADL/self-care: Ordered Upper extremity strengthening, range and motion: Ordered Market Research Interviewer: Assist with community resources: Ordered Home Bound Status Requires the aid of supportive device (check all that apply): Walker Assistance of another person (Describe assistance and medical necessity): Assistance of with all ADLs due to Dementia Describe why leaving home would require a considerable and taxing effort: Confusion Encounter Date and Reason: I certify that a FTF encounter for this patient was performed on May 25, 2023 and that such encounter was related to the primary reason the patient requires home health services. The encounter was conducted in the following manner: By me as the certifying physician, GEOLOGY PROFESSOR, PA or By an inpatient physician, GEOLOGY PROFESSOR or PA during an inpatient stay who communicated findings to me, Certification And Authentication I certify that I composed the above information based on my clinical judgment relating to this patient's medical condition and, if applicable, clinical findings communicated to me by the NPP or inpatient physician who performed the FTF encounter. Name of Provider that will be monitoring home health services: HUA CASANOVA
--- NOTE | 2023-05-25 17:37 | PDOC.CMDIS ---
Date of service: 05/25/23 Time of Service: 17:37 LACE Index Scoring Tool Questions: Length of Stay (in days): 7 - 13 Was the patient admitted via the E.D.?: Yes Comorbidities: Any Tumor and Dementia E.D. Visits: 4 Answers: Total Score: 17 Risk of Readmission: High Risk Care Management Discharge Plan Reason for Hospitalization: ESBL Bacteremia Discharge Plan: Grupo will be discharged home with new home health services for nursing. He will have home infusions for hydration three times a week. LUISITO has been working with [facility] and [facility] to coordinate efforts. [facility] will be able to initiate services Monday. [facility] will deliver the IV fluid (Lactated Ringers solution) and IV pump to Grupo's home tonight. He will also receive home health PT for strengthening and balance. Grupo will transport via private vehicle with his Dwain and daughter Oksana. Patient/Family Education Needs: Review of discharge instructions with family members including medications, activity, limitations and follow up plan of care; discuss Ask Me Three. Services Needed at Discharge: Home Health Care Services and Infusion Therapy
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
== END 2023-05-25 16:10 | disposition home health service (06) | DRG 699 ==
PROVIDERS: Family Medicine; General Practice; Internal Medicine; Nurse Practitioner Acute Care; Admitting Provider Internal Medicine; PCP Nurse Practitioner Family; Visit Provider Internal Medicine
DX: J98.11 Atelectasis (principal); Z16.12 Extended spectrum beta lactamase (ESBL) resistance; N39.0 Urinary tract infection, site not specified; B96.20 Unspecified Escherichia coli [E. coli] as the cause of diseases classified elsewhere; F01.50 Vascular dementia, unspecified severity, without behavioral disturbance, psychotic disturbance, mood disturbance, and anxiety; T83.511A Infection and inflammatory reaction due to indwelling urethral catheter, initial encounter; F02.80 Dementia in other diseases classified elsewhere, unspecified severity, without behavioral disturbance, psychotic disturbance, mood disturbance, and anxiety; G30.9 Alzheimer's disease, unspecified; I25.10 Atherosclerotic heart disease of native coronary artery without angina pectoris; G47.33 Obstructive sleep apnea (adult) (pediatric); N40.1 Benign prostatic hyperplasia with lower urinary tract symptoms; R33.9 Retention of urine, unspecified; Z85.038 Personal history of other malignant neoplasm of large intestine; Z93.3 Colostomy status; Z96.0 Presence of urogenital implants; B96.29 Other Escherichia coli [E. coli] as the cause of diseases classified elsewhere; I49.3 Ventricular premature depolarization; R53.1 Weakness; E78.5 Hyperlipidemia, unspecified; M54.50 Low back pain, unspecified; I10 Essential (primary) hypertension; Z66 Do not resuscitate
CPT/HCPCS: 36415; 80048; 85027; 97110; 97116; 97162; 97530; 99305; 99316; 81003; 81015; 83735; 85025; 99232; 99308; J1644

== ENCOUNTER 2023-05-29 01:38 | Outpatient (REF) | payer MEDICARE, SELFPAY ==
[2023-05-29 03:38] LABS: Bilirubin Negative (Negative); Blood Trace-intact (Negative); Clarity Clear (Clear); Glucose Negative (Negative); Ketones Negative (Negative); Leukocyte Esterase Negative (Negative); Nitrite Negative (Negative); Urobilinogen 0.2 mg/dL (Up to 0.2)
[2023-05-29 03:49] LABS: Bacteria Rare HPF (Negative); C & S Indicated? No; Crystals Rare Calcium Oxalate HPF (Negative); Epithelial Cells Negative HPF (Negative); Mucus Negative (Negative); RBC 0-2 HPF (0-2); WBC 0-2 HPF (0-5)
== END 2023-05-29 01:39 | disposition home or self-care (01) ==
LOC: LBN 01:38
PROVIDERS: PCP Nurse Practitioner Family; Visit Provider Nurse Practitioner Family
DX: N39.0 Urinary tract infection, site not specified (principal); R30.0 Dysuria
CPT/HCPCS: 81003; 81015